=== PATIENT | female | born 1950 | race Caucasian/White ===

== ENCOUNTER → 2016-12-31 | Outpatient (CLI) | payer OTHER | LOC: BMCIMAGING 14:35 | PROVIDERS: ATTEND Physician Assistant | DX: Z47.89 Encounter for other orthopedic aftercare (principal); Z98.1 Arthrodesis status; M51.06 Intervertebral disc disorders with myelopathy, lumbar region ==

== ENCOUNTER → 2017-02-03 | Outpatient (CLI) | payer OTHER | LOC: BHFA 16:15 | PROVIDERS: ATTEND Internal Medicine Cardiovascular Disease | DX: I48.91 Unspecified atrial fibrillation (principal); I50.9 Heart failure, unspecified ==

== ENCOUNTER 2017-02-06 00:31 | Observation (INO) | payer OTHER ==
--- NOTE | 2017-02-06 00:47 | CPEKG ---
Heart Rate: 63 RR Interval: 952 P-R Interval: 152 QRSD Interval: 122 QT Interval: 500 QTC Interval: 512 P [place]: 0 QRS [place]: -12 T Wave [place]: 20 EKG Severity - ABNORMAL ECG - EKG Impression: SINUS RHYTHM EKG Impression: NONSPECIFIC INTRAVENTRICULAR CONDUCTION DELAY EKG Impression: UNCHANGED FROM PREVIOUS Electronically Signed By: Lino Vallejo 06-Feb-2017 01:00:30
[2017-02-06] MEDS ORDERED: NS 1,000 ML IV ONE (00:56)
[2017-02-06] MEDS ORDERED: ONDANSETRON 4 MG/2 ML VIAL IVP ONE (00:56)
[2017-02-06] MEDS ORDERED: HYOSCYAMINE SULFATE 0.125 MG TAB PO ONE (00:59)
[2017-02-06] MEDS ORDERED: LIDOCAINE 2% VISCOUS 15 ML UDCUP PO ONE (00:59)
[2017-02-06] MEDS ORDERED: MAG HYDROX/AL HYDROX/SIMETH 30 ML UDCUP PO ONE (00:59)
[2017-02-06] MEDS ORDERED: IOPAMIDOL (ISOVUE 370) 100 ML BTL IV ONE (01:02)
--- NOTE | 2017-02-06 01:06 | EDPHY ---
H & P Stated Complaint: left face tingling and "acid reflux" beginning tonight Time Seen by Provider: 02/06/17 00:44 HPI/ROS: CHIEF COMPLAINT: Left facial tingling HISTORY OF PRESENT ILLNESS: The patient is a 67-year-old female who comes to the emergency department complaining of left-sided facial tingling. This began about 11:45 p.m. just over an hour ago. She has not had any other with yes or numbness or speech difficulties. 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 She was taken to [facility] had had thrombectomy. She is currently on Pradaxa for history of atrial fibrillation. She also has history of cervical and lumbar spinal fusions and congestive heart failure. She denies having any fever shortness of breath. She denies any trauma. She states that her symptoms began around 11: 30 with a significant headache and then bilateral facial tingling and then left- sided facial tingling. The headache is now gone. REVIEW OF SYSTEMS: Constitutional: denies: chills, fever, recent illness, recent injury EENTM: denies: blurred vision, double vision, nose congestion Respiratory: denies: cough, shortness of breath Cardiac: denies: chest pain, irregular heart rate, lightheadedness, palpitations Gastrointestinal/Abdominal: denies: abdominal pain, diarrhea, nausea, vomiting, blood streaked stools Genitourinary: denies: dysuria, frequency, hematuria, pain Musculoskeletal: denies: joint pain, muscle pain Skin: denies: lesions, rash, jaundice, bruising Neurological: See HPI Hematologic/Lymphatic: denies: blood clots, easy bleeding, easy bruising Immunologic/allergic: denies: HIV/AIDS, transplant EXAM: GENERAL: Well-appearing, well-nourished and in no acute distress. HEAD: Atraumatic, normocephalic. EYES: Pupils equal round and reactive to light, extraocular movements intact, sclera anicteric, conjunctiva are normal. ENT: TMs normal, nares patent, oropharynx clear without exudates. Moist mucous membranes. NECK: Normal range of motion, supple without lymphadenopathy or JVD. LUNGS: Breath sounds clear to auscultation bilaterally and equal. No wheezes rales or rhonchi. HEART: Regular rate and rhythm without murmurs, rubs or gallops. ABDOMEN: Soft, nontender, normoactive bowel sounds. No guarding, no rebound. No masses appreciated. BACK: No CVA tenderness, no spinal tenderness, step-offs or deformities EXTREMITIES: Normal range of motion, no pitting or edema. No clubbing or cyanosis. NEUROLOGICAL: Cranial nerves II through XII grossly intact. Normal speech, normal gait. 5/5 strength, normal movement in all extremities, normal sensation , normal reflexes, normal gait. She denies changes in sensation. NIH stroke score 0. PSYCH: Normal mood, normal affect. SKIN: Warm, dry, normal turgor, no visible rashes or lesions. Source: Patient Exam Limitations: No limitations - Personal History Current Tetanus/Diphtheria Vaccine: Yes Current Tetanus Diphtheria and Acellular Pertussis (TDAP): Yes Tetanus Vaccine Date: <10 years - Medical/Surgical History Hx Asthma: No Hx Chronic Respiratory Disease: No Hx Diabetes: Yes Hx Cardiac Disease: Yes Hx Renal Disease: No Hx Cirrhosis: No Hx Alcoholism: No Hx HIV/AIDS: No Hx Splenectomy or Spleen Trauma: No Other PMH: lumbar fusion, cervical fusion, DM Type 2, HTN, Afib, SBO, Spinal stenosis, Lumbar lamenectomy, cholesctectomy, IBS vs Fructose malabsorpsion, TIA , cerebellar lacunar infarct - Family History Significant Family History: No pertinent family hx - Social History Smoking Status: Former smoker Alcohol Use: Sober Drug Use: None Constitutional: Initial Vital Signs Temperature (C) 36.4 C 02/06/17 00:50 Heart Rate 72 02/06/17 00:50 Respiratory Rate 16 02/06/17 00:50 Blood Pressure 189/83 H 02/06/17 00:50 O2 Sat (%) 97 02/06/17 00:50 O2 Delivery Mode Room Air O2 (L/minute) 2 Allergies/Adverse Reactions: fructose Allergy (Severe, Verified 12/15/14 09:41) Home Medications: Medication Instructions Recorded Magnesium Oxide [Magnesium Oxide 400 mg PO HS 08/17/14 400 mg (*)] Omeprazole [Prilosec 20 mg] 20 mg PO DAILY 08/17/14 Zolpidem Tartrate [Ambien 5MG (*)] 5 - 10 mg PO HS 08/17/14 Amiodarone HCl [Pacerone (*)] 100 mg PO BID 12/15/14 Amitriptyline HCl [Elavil 10 mg 20 mg PO HS 12/15/14 (*)] Dabigatran Etexilate Mesyl 150 mg PO BID 12/15/14 [Pradaxa 150 MG (*)] Diltiazem Xr [Dilacor Xr 180 MG 180 mg PO HS 12/15/14 (RX)] Metformin HCl [Metformin 1000 mg] 1,000 mg PO BID 12/15/14 clonazePAM [Klonopin (*)] 0.5 mg PO DAILY PRN 12/15/14 Metoprolol Succinate Xr [Toprol Xl 25 mg PO DAILY #30 tab.sr 12/16/14 25 mg (*)] Atorvastatin Calcium [Lipitor 40 40 mg PO DAILY 07/28/16 mg (*)] Docusate Sodium [Colace 100 MG (*)] 100 mg PO BID PRN 07/28/16 Gabapentin [Neurontin 300 MG (*)] 900 mg PO BID 07/28/16 Levothyroxine [Synthroid 75 mcg 75 mcg PO DAILY06 07/28/16 (*)] Metoprolol Succinate Xr [Toprol Xl 50 mg PO DAILY@21 07/28/16 50 mg (*)] Ranitidine HCl 150 mg PO DAILY PRN 07/28/16 glipiZIDE [Glucotrol 5 mg] 5 mg PO DAILY 07/28/16 oxyCODONE IR [Oxycodone Ir (*)] 5 mg PO Q4-6PRN PRN 07/28/16 Insulin Glargine [Lantus 100 12 units SC HS 08/27/16 UNITS/ML (*)] Insulin Lispro [humALOG LISPRO 100 5 unit SC DAILY@18 PRN 08/27/16 units/ml (*)] Acetaminophen [Tylenol ES 500 mg 1,000 mg PO TID #0 tab 09/07/16 (*)] Methocarbamol [Robaxin 750 mg (*)] 750 mg PO QID PRN #0 tab 09/07/16 Cephalexin [Keflex] 500 mg PO QID 10 Days 09/23/16 Sulfamethox/Tmp 800/160 mg 1 tab PO BID@1000,2200 10 Days 09/23/16 [Bactrim Ds] Medical Decision Making - Diagnostics EKG Interpretation: An EKG obtained and was read and documented in trace view. Please see trace view for full reading and report. Sinus rhythm, interventricular conduction delay unchanged from previous. Imaging: Results: CT scan of the head was obtained. The results of the study are negative. The study was read by Dr. Darnell Barga. I viewed the images myself on the PACS system. Results: CT scan of the head and neck angiogram was obtained. The results of the study are negative. The study was read by Dr. Darnell Braga. I viewed the images myself on the PACS system. ED Course/Re-evaluation: 2:20 a.m. we discussed the patient's imaging results. She is reassured. She continues to have tingling in left side of her face. I do not have an explanation for this. I recommended admission for further workup and possibly MRI in the morning. The patient agrees. No Visible rashes. 2:30 a.m. I discussed the case with Dr. Padron who will admit to the [facility]. Differential Diagnosis: Partial list of the Differential diagnosis considered include but were not limited to; TIA, CVA, hemorrhage, atypical migraine, Newman's palsy and although unlikely based on the history and physical exam, I also considered meningitis, trauma, neuropathy, dissection. - Data Points Laboratory Results: Laboratory Results 02/06/17 00:56 02/06/17 00:56 02/06/17 02/06/17 02/06/17 00:56 00:56 00:56 WBC RBC Hgb POC Hgb 11.2 gm/dL L gm/dL (12.3-15.9) Hct POC Hct 33 % L % (35.5-47.5) MCV MCH MCHC RDW Plt Count MPV Neut % (Auto) Lymph % (Auto) [place] % (Auto) Eos % (Auto) Baso % (Auto) Nucleat RBC Rel Count Absolute Neuts (auto) Absolute Lymphs (auto) Absolute Monos (auto) Absolute Eos (auto) Absolute Basos (auto) Absolute Nucleated RBC Immature Gran % Immature Gran # PT 14.0 SEC SEC (12.0-15.0) INR 1.09 (0.83-1.16) APTT 35.2 SEC SEC (23.0-38.0) POC Sodium 138 mEq/L mEq/L (134-144) Sodium 138 mEq/L mEq/L (134-144) POC Potassium 3.7 mEq/L mEq/L (3.3-5.0) Potassium 4.1 mEq/L mEq/L (3.5-5.2) POC Chloride 99 mEq/L mEq/L (96-108) Chloride 101 mEq/L mEq/L (97-110) Carbon Dioxide 25 mEq/l mEq/l (22-31) Anion Gap 12 mEq/L mEq/L (8-16) POC BUN 10 mg/dL mg/dL (7-23) BUN 12 mg/dL mg/dL (7-23) Creatinine 0.7 mg/dL mg/dL (0.6-1.0) POC Creatinine 0.6 mg/dL mg/dL (0.6-1.2) Estimated GFR > 60 Glucose 148 mg/dL H mg/dL (70-100) POC Glucose 151 mg/dL H mg/dL (70-100) Calcium 9.7 mg/dL mg/dL (8.5-10.4) Troponin I < 0.012 ng/mL ng/mL (0-0.034) 02/06/17 00:56 WBC 9.45 10^3/uL 10^3/uL (3.80-9.50) RBC 4.26 10^6/uL 10^6/uL (4.18-5.33) Hgb 9.9 g/dL L g/dL (12.6-16.3) POC Hgb Hct 32.7 % L % (38.0-47.0) POC Hct MCV 76.8 fL L fL (81.5-99.8) MCH 23.2 pg L pg (27.9-34.1) MCHC 30.3 g/dL L g/dL (32.4-36.7) RDW 17.4 % H % (11.5-15.2) Plt Count 429 10^3/uL H 10^3/uL (150-400) MPV 10.5 fL fL (8.7-11.7) Neut % (Auto) 45.0 % % (39.3-74.2) Lymph % (Auto) 38.3 % % (15.0-45.0) [place] % (Auto) 13.0 % % (4.5-13.0) Eos % (Auto) 2.2 % % (0.6-7.6) Baso % (Auto) 1.1 % % (0.3-1.7) Nucleat RBC Rel Count 0.0 % % (0.0-0.2) Absolute Neuts (auto) 4.25 10^3/uL 10^3/uL (1.70-6.50) Absolute Lymphs (auto) 3.62 10^3/uL H 10^3/uL (1.00-3.00) Absolute Monos (auto) 1.23 10^3/uL H 10^3/uL (0.30-0.80) Absolute Eos (auto) 0.21 10^3/uL 10^3/uL (0.03-0.40) Absolute Basos (auto) 0.10 10^3/uL 10^3/uL (0.02-0.10) Absolute Nucleated RBC 0.00 10^3/uL 10^3/uL (0-0.01) Immature Gran % 0.4 % % (0.0-1.1) Immature Gran # 0.04 10^3/uL 10^3/uL (0.00-0.10) PT INR APTT POC Sodium Sodium POC Potassium Potassium POC Chloride Chloride Carbon Dioxide Anion Gap POC BUN BUN Creatinine POC Creatinine Estimated GFR Glucose POC Glucose Calcium Troponin I Medications Given: Discontinued Medications Al Hydroxide/Mg Hydroxide (Maalox Susp) 30 ml PO ONCE ONE Stop: 02/06/17 01:00 Last Admin: 02/06/17 01:44 Dose: 30 ml Hyoscyamine Sulfate (Levsin, Hyomax-Sl) 0.25 mg PO ONCE ONE Stop: 02/06/17 01:00 Last Admin: 02/06/17 01:43 Dose: 0.25 mg Sodium Chloride (Ns) 1,000 mls @ 500 mls/hr IV EDNOW ONE Stop: 02/06/17 02:55 Last Admin: 02/06/17 01:43 Dose: 1,000 mls Lidocaine (Lidocaine 2% Viscous) 15 ml PO ONCE ONE Stop: 02/06/17 01:00 Last Admin: 02/06/17 01:43 Dose: 15 ml Ondansetron HCl (Zofran) 4 mg IVP EDNOW ONE Stop: 02/06/17 00:57 Last Admin: 02/06/17 01:44 Dose: Not Given Point of Care Test Results: 02/06/17 00:56 POC Sodium 138 POC Potassium 3.7 POC Chloride 99 POC BUN 10 POC Creatinine 0.6 POC Glucose 151 H Departure - Departure Disposition: [facility] Inpatient Acute Clinical Impression: Paresthesia Condition: Fair
[2017-02-06 01:17] LABS: % IMMATURE GRANULYOCYTES 0.4 % (0.0-1.1); ABSOLUTE IMMATURE GRANULOCYTES 0.04 10^3/uL (0.00-0.10); ADD DIFF? NO; ADD MORPH? NO; ADD SCAN? NO; ATYPICAL LYMPHOCYTE FLAG 0 (0-99); FRAGMENT RBC FLAG 20 (0-99); HEMATOCRIT 32.7 % (38.0-47.0); HEMOGLOBIN 9.9 g/dL (12.6-16.3); LEFT SHIFT FLG 0 (0-99); LIPEMIA HEMOLYSIS FLAG 80 (0-99); MEAN CELL HEMOGLOBIN 23.2 pg (27.9-34.1); MEAN CELL HEMOGLOBIN CONCENTR. 30.3 g/dL (32.4-36.7); MEAN CELL VOLUME 76.8 fL (81.5-99.8); MEAN PLATELET VOLUME 10.5 fL (8.7-11.7); PLATELET CLUMPS FLAG 0 (0-99); PLATELET COUNT 429 10^3/uL (150-400); RED BLOOD CELL COUNT 4.26 10^6/uL (4.18-5.33); RED CELL DISTRIBUTION WIDTH 17.4 % (11.5-15.2)
[2017-02-06 01:21] LABS: INR 1.09 (0.83-1.16)
[2017-02-06 01:22] LABS: APTT 35.2 SEC (23.0-38.0)
[2017-02-06 01:40] LABS: ANION GAP 12 mEq/L (8-16); CALCIUM 9.7 mg/dL (8.5-10.4); CARBON DIOXIDE 25 mEq/l (22-31); CHLORIDE 101 mEq/L (97-110); CREATININE 0.7 mg/dL (0.6-1.0); GLOMERULAR FILTRATION RATE > 60; GLUCOSE 148 mg/dL (70-100); POTASSIUM 4.1 mEq/L (3.5-5.2); SODIUM 138 mEq/L (134-144)
[2017-02-06 01:53] LABS: TROPONIN I < 0.012 ng/mL (0-0.034)
[2017-02-06 03:28] VITALS: RESP 19
[2017-02-06] MEDS ORDERED: OXYCODONE/APAP 5/325 TAB PO PRN (04:08)
--- NOTE | 2017-02-06 06:06 | PDGENHP ---
History and Physical - Chief Complaint headache, facial tingling - History of Present Illness Patient is a 67-year-old female with a history of atrial fibrillation, dm 2, diastolic CHF, hypertension and previous CVA with residual mild expressive aphasia who presents to the ED with complaint of severe headache and facial tingling. Patient states she did not previously get headaches and was never diagnosed with migraine headaches, but over the past 2 months has noticed increasing frequency of frontal headache. This evening patient reports feeling in her usual state of health when at around 11:30 p.m. she developed the sudden onset severe headache. She describes the headache as 8/10 in intensity present diffusely across her head, associated with mild blurriness in her vision. Shortly after the onset of the headache she also developed left facial tingling. She did not note any associated dysarthria, drooling, or any other focal weakness/tingling in her body. Given these symptoms and her history, she decided to come to the ED for further evaluation. Of note, patient reports having a routine outpatient TTE on 02/03, was told results were not significantly changed from priors. She denies any chest pain, palpitations, shortness of breath or cough presently. She also denies n/v/d. On arrival to the ED patient was afebrile, but moderately hypertensive. CT head showed chronic small vessel disease but no acute hemorrhage, infarct or edema. Patient's EKG was normal sinus rhythm without obvious ischemic changes. Labs revealed negative troponin, normal CBC and normal BMP including glucose. CT angio of her head and neck were also unremarkable for any obvious vessel infarct or stenosis. Patient was then admitted to the hospitalist service for further management. History Information - Allergies/Home Medication List Allergies/Adverse Reactions: fructose Allergy (Severe, Verified 12/15/14 09:41) Home Medications: Magnesium Oxide [Magnesium Oxide 400 mg (*)] 400 mg PO HS 08/17/14 [Last Taken 08/05/16] Omeprazole [Prilosec 20 mg] 20 mg PO DAILY 08/17/14 [Last Taken 09/01/16 21:00] Zolpidem Tartrate [Ambien 5MG (*)] 5 - 10 mg PO HS 08/17/14 [Last Taken 05:00] Amiodarone HCl [Pacerone (*)] 100 mg PO BID 12/15/14 [Last Taken 09/02/16 05:00] Amitriptyline HCl [Elavil 10 mg (*)] 20 mg PO HS 12/15/14 [Last Taken 09/01/16 20:30] Dabigatran Etexilate Mesyl [Pradaxa 150 MG (*)] 150 mg PO BID 12/15/14 [Last Taken 08/29/16] Diltiazem Xr [Dilacor Xr 180 MG (RX)] 180 mg PO HS 12/15/14 [Last Taken 09/01/16 ] Metformin HCl [Metformin 1000 mg] 1,000 mg PO BID 12/15/14 [Last Taken 09/01/16 20:00] clonazePAM [Klonopin (*)] 0.5 mg PO DAILY PRN 12/15/14 [Last Taken 09/02/16 05: 00] Atorvastatin Calcium [Lipitor 40 mg (*)] 40 mg PO DAILY 07/28/16 [Last Taken ] Docusate Sodium [Colace 100 MG (*)] 100 mg PO BID PRN 07/28/16 [Last Taken 09/01] Gabapentin [Neurontin 300 MG (*)] 900 mg PO BID 07/28/16 [Last Taken 09/02/16 05 :00 300] Levothyroxine [Synthroid 75 mcg (*)] 75 mcg PO DAILY06 07/28/16 [Last Taken 05:00] Metoprolol Succinate Xr [Toprol Xl 50 mg (*)] 50 mg PO DAILY@21 07/28/16 [Last Taken 09/01/16 20:00] Ranitidine HCl 150 mg PO DAILY PRN 07/28/16 [Last Taken 08/12/16] glipiZIDE [Glucotrol 5 mg] 5 mg PO DAILY 07/28/16 [Last Taken 09/01/16] oxyCODONE IR [Oxycodone Ir (*)] 5 mg PO Q4-6PRN PRN 07/28/16 [Last Taken ] Insulin Glargine [Lantus 100 UNITS/ML (*)] 12 units SC HS 08/27/16 [Last Taken Unknown] Insulin Lispro [humALOG LISPRO 100 units/ml (*)] 5 unit SC DAILY@18 PRN [Last Taken Unknown] I have personally reviewed and updated: family history, medical history, social history, surgical history - Past Medical History Additional medical history: atrial fibrillation on pradaxa. DM 2. diastolic CHF. hypertension. previous CVA with residual mild expressive aphasia. HLD - Surgical History Additional surgical history: Lumbar laminectomy. cervical kyphoplasty. small bowel surgery - Family History Positive for: non-pertinent - Social History Smoking Status: Former smoker (quit > 30 yrs ago) Alcohol Use: None Drug Use: None Additional social history: Patient lives alone, usually walks independently, exercises with PT regularly. Review of Systems ROS: 10pt was reviewed & negative except for what was stated in HPI & below Physical Exam Temp Pulse Resp BP Pulse Ox 36.5 C 57 L 19 151/75 H 99 02/06/17 03:06 02/06/17 03:06 02/06/17 03:06 02/06/17 03:06 02/06/17 03:06 Constitutional: no apparent distress, appears nourished, not in pain, obese Eyes: PERRL, anicteric sclera, EOMI Ears, Nose, Mouth, Throat: moist mucous membranes, hearing normal, ears appear normal, no oral mucosal ulcers Cardiovascular: regular rate and rhythym, no murmur, rub, or gallop, pulses symmetric bilaterally, No JVD, No edema Peripheral Pulses: 2+: dorsalis-pedis (R), dorsalis-pedis (L) Respiratory: no respiratory distress, no rales or rhonchi, clear to auscultation Gastrointestinal: normoactive bowel sounds, soft, non-tender abdomen, no palpable masses, No guarding, No rebound, No distension Genitourinary: no bladder fullness, no bladder tenderness Skin: warm, normal color, no rashes or abrasions, no fluctuance, No mottled Musculoskeletal: full muscle strength, no muscle tenderness, normal joint ROM, no joint effusions Neurologic: AAOx3, sensation intact bilaterally, CN II-XII Intact, No weakness, No numbness, No pronator drift, No facial droop Psychiatric: interacting appropriately, not anxious, not encephalopathic, thought process linear Lab Data & Imaging Review 02/06/17 00:56 02/06/17 00:56 WBC 9.45 10^3/uL (3.80-9.50) 02/06/17 00:56 RBC 4.26 10^6/uL (4.18-5.33) 02/06/17 00:56 Hgb 9.9 g/dL (12.6-16.3) L 02/06/17 00:56 POC Hgb 11.2 gm/dL (12.3-15.9) L 02/06/17 00:56 Hct 32.7 % (38.0-47.0) L 02/06/17 00:56 POC Hct 33 % (35.5-47.5) L 02/06/17 00:56 MCV 76.8 fL (81.5-99.8) L 02/06/17 00:56 MCH 23.2 pg (27.9-34.1) L 02/06/17 00:56 MCHC 30.3 g/dL (32.4-36.7) L 02/06/17 00:56 RDW 17.4 % (11.5-15.2) H 02/06/17 00:56 Plt Count 429 10^3/uL (150-400) H 02/06/17 00:56 MPV 10.5 fL (8.7-11.7) 02/06/17 00:56 Neut % (Auto) 45.0 % (39.3-74.2) 02/06/17 00:56 Lymph % (Auto) 38.3 % (15.0-45.0) 02/06/17 00:56 [place] % (Auto) 13.0 % (4.5-13.0) 02/06/17 00:56 Eos % (Auto) 2.2 % (0.6-7.6) 02/06/17 00:56 Baso % (Auto) 1.1 % (0.3-1.7) 02/06/17 00:56 Nucleat RBC Rel Count 0.0 % (0.0-0.2) 02/06/17 00:56 Absolute Neuts (auto) 4.25 10^3/uL (1.70-6.50) 02/06/17 00:56 Absolute Lymphs (auto) 3.62 10^3/uL (1.00-3.00) H 02/06/17 00:56 Absolute Monos (auto) 1.23 10^3/uL (0.30-0.80) H 02/06/17 00:56 Absolute Eos (auto) 0.21 10^3/uL (0.03-0.40) 02/06/17 00:56 Absolute Basos (auto) 0.10 10^3/uL (0.02-0.10) 02/06/17 00:56 Absolute Nucleated RBC 0.00 10^3/uL (0-0.01) 02/06/17 00:56 Immature Gran % 0.4 % (0.0-1.1) 02/06/17 00:56 Immature Gran # 0.04 10^3/uL (0.00-0.10) 02/06/17 00:56 PT 14.0 SEC (12.0-15.0) 02/06/17 00:56 INR 1.09 (0.83-1.16) 02/06/17 00:56 APTT 35.2 SEC (23.0-38.0) 02/06/17 00:56 POC Sodium 138 mEq/L (134-144) 02/06/17 00:56 Sodium 138 mEq/L (134-144) 02/06/17 00:56 POC Potassium 3.7 mEq/L (3.3-5.0) 02/06/17 00:56 Potassium 4.1 mEq/L (3.5-5.2) 02/06/17 00:56 POC Chloride 99 mEq/L (96-108) 02/06/17 00:56 Chloride 101 mEq/L (97-110) 02/06/17 00:56 Carbon Dioxide 25 mEq/l (22-31) 02/06/17 00:56 Anion Gap 12 mEq/L (8-16) 02/06/17 00:56 POC BUN 10 mg/dL (7-23) 02/06/17 00:56 BUN 12 mg/dL (7-23) 02/06/17 00:56 Creatinine 0.7 mg/dL (0.6-1.0) 02/06/17 00:56 POC Creatinine 0.6 mg/dL (0.6-1.2) 02/06/17 00:56 Estimated GFR > 60 02/06/17 00:56 Glucose 148 mg/dL (70-100) H 02/06/17 00:56 POC Glucose 151 mg/dL (70-100) H 02/06/17 00:56 Calcium 9.7 mg/dL (8.5-10.4) 02/06/17 00:56 Troponin I < 0.012 ng/mL (0-0.034) 02/06/17 00:56 Visualized and Interpreted imaging results: Yes Interpretation: CT head: no acute intranial changes; chronic small vessel disease and previous lacunar infarct. CT angio head/neck: no acute infarct or stenosis Visualized and Interpreted EKG results: Yes EKG Interpretation: Positive for: normal sinsus rhythm Assessment & Plan Assessment: Patient is a 67-year-old female with history of previous CVA, hypertension hyperlipidemia, dm 2, diastolic CHF and atrial fibrillation on systemic anticoagulation who presents to the ED with complaint of headache and facial paresthesias concerning for TIA versus complex migraine. Plan: # facial paresthesias Patient's description of her symptoms and physical exam appear consistent with TIA vs complex migraine. Symptom onset at 11:30pm and have improved since admission. Initial CT head and CT angio head/neck are without acute pathology. Electrolytes, including glucose, are within normal limits. Patient had recent lipid panel and TTE in the outpatient setting, will obtain TTE results to complete the TIA w/u. EKG and troponin are also unremarkable. Will check MRI brain. # elevated BP, chronic hypertension BP moderately elevated on presentation, has improved without intervention. Will allow for permissive hypertension in setting of possible tia vs cva and restart home meds when appropriate. # diastolic CHF Patient appears euvolemic on presentation today. Reports she was recently initiated on lasix and also spironolactone therapy. Will continue this regimen once dosing confirmed. # DM2 Patient on basal/bolus insulin at home. Will confirm and continue home regimen. Recent A1C 7%. # atrial fibrillation Patient in sinus rhythm on presenting EKG, rate wnl. Will continue home pradaxa as well as rate controlling meds, once confirmed. # dispo: admit to observation for TIA w/u # gen: cardiac diet DVT ppx: on pradaxa Full code
[2017-02-06] MEDS ORDERED: D50W 25 GM/50 ML SYR IVP PRN (07:14)
[2017-02-06] MEDS ORDERED: INSULIN LISPRO 100 UNIT/ML SC SCH ×3 (08:00→18:00)
[2017-02-06 09:48] LABS: COLOR PALE YELLOW; LEUKOCYTE ESTERASE,URINE NEGATIVE (NEGATIVE); NITRITE,URINE NEGATIVE (NEGATIVE)
[2017-02-06 10:00] VITALS: BP 148/73; PULSE 53; TEMP 98.4; O2SAT 92
[2017-02-06] MEDS ORDERED: ACETAMINOPHEN 500 MG TAB PO PRN (12:03)
[2017-02-06] MEDS ORDERED: NON-FORMULARY NEW DRUG (Ranitidine Hcl [Ranitidine Hcl] 150 MG) PO PRN (12:03)
[2017-02-06] MEDS ORDERED: clonazePAM 0.5 MG TAB PO PRN (12:03)
[2017-02-06] MEDS ORDERED: oxyCODONE IR 5 MG TAB PO PRN (12:03)
--- NOTE | 2017-02-06 12:07 | HOSPPROG ---
Hospitalist Progress Note Assessment/Plan: 67 yo F w CP neg stress home today see dc summary Subjective: neg stress Objective: Vital Signs Temp Pulse Resp BP Pulse Ox 36.9 C 53 L 19 148/73 H 92 02/06/17 08:00 02/06/17 08:00 02/06/17 08:00 02/06/17 08:00 02/06/17 08:00 02/05/17 02/06/17 02/07/17 05:59 05:59 05:59 Intake Total 500 Balance 500 PT 14.0 SEC (12.0-15.0) 02/06/17 00:56 INR 1.09 (0.83-1.16) 02/06/17 00:56 - Physical Exam Constitutional: no apparent distress, appears nourished Eyes: PERRL, anicteric sclera Ears, Nose, Mouth, Throat: hearing normal, ears appear normal Cardiovascular: regular rate and rhythym, no murmur, rub, or gallop Respiratory: no respiratory distress, no rales or rhonchi, clear to auscultation Gastrointestinal: normoactive bowel sounds, soft, non-tender abdomen Genitourinary: no bladder fullness, No landry in urethra Skin: warm, normal color Musculoskeletal: full muscle strength, no muscle tenderness Neurologic: AAOx3 ICD10 Worksheet Patient Problems: Problems Problem Status Onset Paresthesia Acute Abdominal pain Acute Arthrodesis status Acute Atrial fibrillation with rapid ventricular response Acute Facial numbness Acute Inadvertent durotomy Acute Lumbar radiculitis Acute Lumbar stenosis Acute
[2017-02-06] MEDS ORDERED: NON-FORMULARY NEW DRUG (Omeprazole [Prilosec 20 Mg] 20 MG) PO SCH (12:15)
[2017-02-06] MEDS ORDERED: FAMOTIDINE 20 MG TAB PO PRN (12:25)
[2017-02-06] MEDS ORDERED: SPIRONOLACTONE 25 MG TAB PO SCH (12:30)
[2017-02-06] MEDS ORDERED: AMIODARONE HCL 200 MG TAB PO SCH (12:30)
[2017-02-06] MEDS ORDERED: FUROSEMIDE 40 MG TAB PO SCH (12:30)
[2017-02-06] MEDS ORDERED: GABAPENTIN 300 MG CAP PO SCH ×2 (12:30→21:00)
[2017-02-06] MEDS ORDERED: DABIGATRAN ETEXILATE MESYL 150 MG CAP PO SCH (12:30)
[2017-02-06] MEDS ORDERED: PANTOPRAZOLE SODIUM 40 MG TAB PO SCH (12:30)
[2017-02-06] MEDS ORDERED: METOPROLOL SUCCINATE XR 25 MG TAB PO SCH (12:30)
[2017-02-06] MEDS ORDERED: ATORVASTATIN CALCIUM 40 MG TAB PO SCH (12:30)
--- NOTE | 2017-02-06 16:50 | HOSPPROG ---
Hospitalist Progress Note Assessment/Plan: 67 yo tia vs migraine neuro to see in AM no stroke on M add asa PT/OT Objective: Vital Signs Temp Pulse Resp BP Pulse Ox 36.9 C 53 L 19 148/73 H 92 02/06/17 08:00 02/06/17 13:48 02/06/17 08:00 02/06/17 13:48 02/06/17 08:00 02/05/17 02/06/17 02/07/17 05:59 05:59 05:59 Intake Total 500 Balance 500 PT 14.0 SEC (12.0-15.0) 02/06/17 00:56 INR 1.09 (0.83-1.16) 02/06/17 00:56 ICD10 Worksheet Patient Problems: Problems Problem Status Onset Paresthesia Acute Abdominal pain Acute Arthrodesis status Acute Atrial fibrillation with rapid ventricular response Acute Facial numbness Acute Inadvertent durotomy Acute Lumbar radiculitis Acute Lumbar stenosis Acute
[2017-02-06] MEDS ORDERED: NON-FORMULARY NEW DRUG (Metformin Hcl [Metformin 1000 Mg] 1,000 MG) PO SCH (21:00)
[2017-02-06] MEDS ORDERED: METOPROLOL SUCCINATE XR 50 MG TAB PO SCH (21:00)
[2017-02-06] MEDS ORDERED: INSULIN GLARGINE 100 UNITS/ML SYRINGE SC SCH (21:00)
[2017-02-06] MEDS ORDERED: metFORMIN HCL 500 MG TAB PO SCH (21:00)
[2017-02-06] MEDS ORDERED: AMITRIPTYLINE HCL 10 MG TAB PO SCH (21:00)
[2017-02-06] MEDS ORDERED: ZOLPIDEM TARTRATE 5 MG TAB PO SCH (21:00)
[2017-02-06] MEDS ORDERED: DILTIAZEM 180 MG PO SCH (21:00)
--- NOTE | 2017-02-06 21:12 | GCON ---
[f rep st] CONSULTATION NEUROLOGY CONSULTATION DATE OF CONSULTATION: 02/06/2017 REFERRING PHYSICIAN: Angelo Conklin MD CHIEF COMPLAINT: Paresthesias. BILLING INFORMATION: 50 total minutes on floor time today; over 50% in direct counseling with the patient and coordination of care. HISTORY OF PRESENT ILLNESS: The patient is a very pleasant 67-year-old lady with known atrial fibrillation, on anticoagulation with Pradaxa. She has a fairly well-documented and complex neurologic history in our electronic health record. Most recently, in January of 2016, she had missed at least 2 doses of Pradaxa and came in with acute expressive aphasia under a stroke alert. Noncontrasted head CT showed early changes of left hemisphere infarct, and CT angiography of the head showed an acute intraluminal thrombus in distal MCA branches. She was helicoptered to [facility] and had a percutaneous clot retrieval and did very well with interventional therapy. She states she had a "99%" recovery from that procedure with just a little bit of word substitution symptoms occasionally. The other important part of her neurologic history dates back to 2010. She was at [facility] having a chair massage because she has cervical spine problems with a fusion in the past. She was having neck cracks, per her words, at that time. She then suddenly developed some left facial tingling identical to what she presented with this admission. She developed some headache and some what she describes as some scintillating scotoma at that time. She eventually came to the emergency department and was found to have an incidental small cerebellar infarct on diffusion-weighted images. Dr. Sebastian had seen her at that time and felt that the infarct was not related to her left facial tingling. Indeed, I was able to see the 2010 diffusion-weighted images this evening, and the diffusion-weighted lesion should not cause any left facial sensory symptoms. The patient came to the emergency department this admission because at 11:45 p.m. last night she developed a significant headache. However, she states she has been actually having headache for 10 days related to an upper respiratory tract viral infection that has been building for the last 10 days related to the viral URI. Last night, she had yet another headache as she had been having for the last 10 days in a frontal vice-like manner. She then took a Klonopin and lay down and then got up 15 minutes later and the left V2 distribution of her face began tingling, very familiar to the symptoms she had in 2010. The tingling did seem to approach or start crossing midline across her lips in a perioral distribution. The headache persisted and she came to the emergency department. She had a full stroke evaluation with CT of the head and neck. We reviewed that data. The CT angiography of the head and neck showed no significant cervical stenosis and her intracranial circulation was unremarkable. There was no clot or thrombus. She had a followup brain MRI at 4 a.m. this morning which showed no diffusion-weighted abnormalities. The radiologist did note that since her last MRI in 2014, there have been some new lacunar infarcts. She has been on anticoagulation continuously for the most part since 2014 until now. She does continue to feel some on and off paresthesias in her left face and around her lips, depending on what she is doing or if she is paying attention. Her headache is very mild and resolving now. There was no nausea or phonophobia or photophobia. REVIEW OF SYSTEMS: A 10-point review of systems only pertinent to HPI. PAST MEDICAL HISTORY: Atrial fibrillation, on Pradaxa. Diabetes, diastolic CHF , hypertension, previous stroke, status post percutaneous thrombectomy. SOCIAL HISTORY: She is a former smoker, quit over 30 years ago. Originally from [place]. She lives alone. FAMILY HISTORY: There is no inheritable neurologic disease. HOME MEDICATIONS: Please see the full EHR list. She is on Pradaxa. She is not on any antiplatelets. ALLERGIES: Fructose. PHYSICAL EXAMINATION: VITAL SIGNS: Blood pressure 148/73, heart rate 53, afebrile; 36.9. GENERAL: Patient is in no acute distress. She is very pleasant. NEUROLOGIC: Higher mental function: She is awake and alert. She is lucid. She names 5/5. She follows commands 5/5. Repeats 5/5. There was no aphasia with formal testing, however, to conversation. She did have some word substitutions occasionally and phonemic paraphasic errors on occasion as well. Cranial nerve exam was normal, 2 through 7, 11 and 12. When I was doing light touch testing on her face, she denied any difference between the left and right. Motor exam was normal strength, tone, and deep tendon reflexes throughout. Sensory exam was normal to light touch in limbs. Coordination was normal in the upper and lower extremities. Her gait was normal to straight away. There was no ataxia. IMPRESSION/PLAN: 1. History of atrial for atrial fibrillation, on novel oral anticoagulant therapy. 2. History of Stroke 3. Paresthesias and headache, resolving. The patient's current symptoms are not definitively consistent with an acute neurovascular syndrome based on the clinical features and negative diffusion- weighted imaging on MRI. I am reassured she has had these symptoms in the past and they appear to have begun with this viral upper respiratory tract infection. They may be an atypical migraine or a benign facial paresthesia in the setting of viral syndrome symptoms, including headache. I counseled the patient at length. We also discussed that she has had interval lacunar infarcts since her last MRI in 2014. This is despite being on oral anticoagulation. For the time being, I have recommended we add a baby aspirin to her daily Pradaxa therapy. She is agreeable to this plan and will keep an eye out for any bleeding or bruising. She will follow up with Cardiology next week and discuss with Dr. Muniz. If he is okay with antiplatelet therapy, in addition to oral anticoagulation, she will continue indefinitely. If he has any contraindications, she can discontinue the baby aspirin. Otherwise, I have talked to Dr. Conklin, and he will discharge the patient this evening with followup with Dr. Muniz, and she can also follow up with her outpatient neurologist, Dr. Gerard, as well. Thank you for this consultation. /[id number]/MODL MTDD
[2017-02-07] MEDS ORDERED: LEVOTHYROXINE 75 MCG TAB PO SCH (06:00)
[2017-02-07] MEDS ORDERED: ASPIRIN 81 MG CHEWABLE TAB PO SCH (09:00)
[2017-02-07] MEDS ORDERED: PANTOPRAZOLE SODIUM 40 MG TAB PO SCH (09:00)
[2017-02-07] MEDS ORDERED: DILTIAZEM CD 180 MG CAP PO SCH (09:00)
--- NOTE | 2017-02-07 15:23 | GDS ---
[f rep st] DISCHARGE SUMMARY DISCHARGE DIAGNOSES: 1. History of cerebrovascular accident. 2. Facial numbness with MRI with no evidence of stroke. 3. Atrial fibrillation, on novel oral anticoagulant therapy. 4. Headache. HOSPITAL COURSE: The patient presented with focal headache and facial tingling and perhaps some num bness in the context of recent headaches, which were a new complaint for her. She had a head CT wit h no acute stroke and no hemorrhage. She had CTA showing no significant vascular lesions. She ackn owledged compliance with her novel oral anticoagulant. She had a brain MRI that showed no acute or subacute stroke, but she did have small lacunar infarcts since the prior study of November 16, 2014, i ncluding a left basal ganglia and left lateral margin of the posterior temporal lobes. The patient does not take an aspirin. This was added. She was seen by Neurology, who felt that her presenting constellation of symptoms, did not represent a neurovascular event, and this is supported by the omar snyder. She is discharged home with an aspirin and an otherwise unchanged medical regimen. /[id number]/MODL
== END 2017-02-06 20:05 | disposition home or self-care (01) ==
LOC: F1N 03:04
PROVIDERS: ADMIT Internal Medicine; ATTEND Internal Medicine
DX: R20.2 Paresthesia of skin (principal); R51 Headache; I48.91 Unspecified atrial fibrillation; Z79.01 Long term (current) use of anticoagulants; Z86.73 Personal history of transient ischemic attack (TIA), and cerebral infarction without residual deficits; E11.9 Type 2 diabetes mellitus without complications; Z98.1 Arthrodesis status; I11.0 Hypertensive heart disease with heart failure; I50.32 Chronic diastolic (congestive) heart failure; E78.5 Hyperlipidemia, unspecified
CPT/HCPCS: 70450; 70496; 70498; 70551; 93005; G0378; J1815; J2405; Q9967; 82947-QW

== ENCOUNTER → 2017-04-15 | Outpatient (CLI) | payer OTHER | LOC: BHFA 13:00 | PROVIDERS: ATTEND Internal Medicine Interventional Cardiology | DX: I48.91 Unspecified atrial fibrillation (principal); R06.02 Shortness of breath ==

== ENCOUNTER → 2017-06-22 | Outpatient (CLI) | payer OTHER | LOC: BMCIMAGING 11:16 | PROVIDERS: ATTEND Physician Assistant | DX: Z09 Encounter for follow-up examination after completed treatment for conditions other than malignant neoplasm (principal); Z98.890 Other specified postprocedural states ==

== ENCOUNTER → 2017-07-16 | Outpatient (CLI) | payer OTHER | LOC: FIMAGING 15:48 | PROVIDERS: ATTEND Internal Medicine Critical Care Medicine | DX: J40 Bronchitis, not specified as acute or chronic (principal); D71 Functional disorders of polymorphonuclear neutrophils; I25.10 Atherosclerotic heart disease of native coronary artery without angina pectoris; Z87.891 Personal history of nicotine dependence ==

== ENCOUNTER 2017-07-26 13:12 | Emergency (ER) | payer OTHER ==
--- NOTE | 2017-07-26 13:30 | EDPHY ---
H & P Stated Complaint: Back pain Time Seen by Provider: 07/26/17 13:27 HPI/ROS: HPI: This is a 67-year-old female who presents with Chief Complaint: lower back pain Location: Lumbar back Quality: Sharp pain Duration: 1-2 weeks Signs and Symptoms: No bleeding, no radiation, no numbness, no weakness, no tingling, no incontinence, no decreased range of motion Timing: Worse over the last 2 days Severity: Moderate to severe Context: Patient reports that she had lumbar fusion [address] Shannon. She saw him again in 1 month ago and x-ray showed some loosening of screws. She then had outpatient MRI of the lumbar spine at [facility] 1 week ago. She is unsure of these results. She reports that she was sitting on the toilet 2 days ago, flexed her back and felt a pulling sensation where the screws are located. Pain has continued to worsen over the last 2 days. She is ambulatory, denies incontinence, but reports considerable pain Modifying Factors: Given 100 Fentanyl on route by EMS moderate relief Comment: ROS: Constitutional: No fever, no chills, no weight loss Eyes: No blurred vision Respiratory: No shortness of breath, no cough Cardiovascular: No chest pain Gastrointestinal: No nausea, no vomiting no diarrhea Genitourinary: No dysuria Extremities: No myalgias Neurologic: No weakness, no numbness Skin: No rashes Hematologic: No bruising, no bleeding MEDICAL/SURGICAL/SOCIAL HISTORY: lumbar fusion, cervical fusion, DM Type 2, HTN, Afib, SBO, Spinal stenosis, Lumbar laminectomy, cholecystectomy, IBS vs Fructose malabsorption, TIA, cerebellar lacunar infarct Source: Patient Exam Limitations: No limitations - Personal History Tetanus Vaccine Date: <10 years - Medical/Surgical History Hx Asthma: No Hx Chronic Respiratory Disease: No Hx Diabetes: Yes Hx Cardiac Disease: Yes Hx Renal Disease: No Hx Cirrhosis: No Hx Alcoholism: No Hx HIV/AIDS: No Hx Splenectomy or Spleen Trauma: No Other PMH: lumbar fusion, cervical fusion, DM Type 2, HTN, Afib, SBO, Spinal stenosis, Lumbar lamenectomy, cholesctectomy, IBS vs Fructose malabsorpsion, TIA , cerebellar lacunar infarct - Social History Smoking Status: Former smoker (quit > 30 yrs ago) - Physical Exam Exam: CONSTITUTIONAL: Elderly female, nontoxic in appearance, talkative, awake and alert, no obvious distress HEENT: Atraumatic and normocephalic, PERRL, EOMI. Tympanic membranes clear. Oropharynx clear, no exudate and moist pink mucosa. Airway patent. No lymphadenopathy. No meningismus. Cardiovascular: Normal S1/S2, regular rate, regular rhythm, without murmur rub or gallop. PULMONARY/CHEST: Symmetrical and nontender. Clear to auscultation bilaterally Good air movement. No accessory muscle usage. ABDOMEN: Soft, nondistended, nontender, no rebound, no guarding, no peritoneal signs, no masses or organomegaly. No CVAT. EXTREMITIES: 2/2 pulses, no deformities, no clubbing, no cyanosis or edema. BACK: Able to roll [id number] in the ER stretcher without assistance; well- healed remote lumbar midline incision noted; no tenderness bilaterlly lumbar paraspinous muscles; no midline deformities/tenderness with palpation. Bilateral full range of motion of hip flexion/internal rotation/external rotation. Pain with bilateral straight leg raise. Pain worsened with extension to 30, flexion to 90, bilateral rotation 45. NEUROLOGICAL: no focal neuro deficits. GCS 15. Light touch sensation intact. SKIN: Warm and dry, no erythema. no rash. Good capillary refill. Constitutional: Initial Vital Signs Heart Rate 91 07/26/17 13:36 Blood Pressure 135/74 H 07/26/17 13:36 O2 Sat (%) 2 L 07/26/17 13:36 O2 Delivery Mode Room Air Allergies/Adverse Reactions: fructose Allergy (Severe, Verified 12/15/14 09:41) Home Medications: Medication Instructions Recorded Omeprazole [Prilosec 20 mg] 20 mg PO DAILY 08/17/14 Zolpidem Tartrate [Ambien 5MG (*)] 5 - 10 mg PO HS 08/17/14 Amitriptyline HCl [Elavil 10 mg 20 mg PO HS 12/15/14 (*)] Dabigatran Etexilate Mesyl 150 mg PO BID 12/15/14 [Pradaxa 150 MG (*)] Diltiazem Xr [Dilacor Xr 180 MG 180 mg PO HS 12/15/14 (RX)] Metformin HCl [Metformin 1000 mg] 1,000 mg PO BID 12/15/14 clonazePAM [Klonopin (*)] 0.5 mg PO DAILY PRN 12/15/14 Metoprolol Succinate Xr [Toprol Xl 25 mg PO DAILY #30 tab.sr 12/16/14 25 mg (*)] Atorvastatin Calcium [Lipitor 40 40 mg PO DAILY 07/28/16 mg (*)] Gabapentin [Neurontin 300 MG (*)] 300 mg PO DAILY 07/28/16 Levothyroxine [Synthroid 75 mcg 75 mcg PO SUMOTUWETHFR@07/28/16 (*)] Metoprolol Succinate Xr [Toprol Xl 50 mg PO DAILY@07/28/16 50 mg (*)] Ranitidine HCl 150 mg PO DAILY PRN 07/28/16 oxyCODONE IR [Oxycodone Ir (*)] 5 mg PO Q4-6PRN PRN 07/28/16 Insulin Glargine [Lantus 100 14 units SC HS 08/27/16 UNITS/ML (*)] Insulin Lispro [humALOG LISPRO 100 6 - 9 unit SC TIDMEAL 08/27/16 units/ml (*)] Acetaminophen [Tylenol ES 500 mg 1,000 mg PO TID PRN 02/06/17 (*)] Amiodarone HCl [Pacerone (*)] 200 mg PO BID 02/06/17 Aspirin [Aspirin 81mg (*)] 81 mg PO DAILY #0 tab.chew 02/06/17 Furosemide [Lasix 40 MG (*)] 40 mg PO DAILY 02/06/17 Gabapentin [Neurontin 300 MG (*)] 600 mg PO HS 02/06/17 Insulin Lispro [humALOG LISPRO 100 0 unit SC TIDMEAL PRN 02/06/17 units/ml (*)] Spironolactone [Aldactone 25 MG 25 mg PO DAILY 02/06/17 (*)] Diazepam [Valium 2 MG (*)] 2 mg PO Q8 PRN #20 tab 07/26/17 oxyCODONE/APAP 5/325 [Percocet 1 - 2 tab PO Q4H PRN #20 tab 07/26/17 5/325 (*)] Medical Decision Making ED Course/Re-evaluation: 1330: Decision to call Dr. Shannon and/or his PA Farhad to discuss case and determine how to proceed No signs of neurovascular compromise/tenting of skin/compartment syndrome/ extremities and joints examined above and below area of concern and are neurovascularly intact. 1345: Spoke with Dr. Shiva WAGNER, Tyra Shen, who advised MRI results show L1- L2 and L2-L3 degenerative changes, with fracture at L5 of screw -stable with bone mineralization present. Recommended for patient to have lumbar ABRAHAM injections. Recommends Medrol Dosepak, muscle relaxers, pain control and follow up this week in the office. Does not recommend repeat imaging. 1350: Advised patient of findings and discussion with Neurosurgery. She now reports that she had lumbar ABRAHAM injections on Wednesday of last week. Patient's pain is now controlled. She is a diabetic and Medrol Dosepak is not a good pain control option for her. Patient has had Percocet and muscle relaxer in the past with good pain control. She is ambulatory with cane which is her baseline and wishes to be discharged home. I feel that this is a reasonable plan. Differential Diagnosis: Back pain including but not limited to muscular pain, herniated disc, spine fracture, intra-abdominal causes and urinary tract infection. Departure - Departure Disposition: Home, Routine, Self-Care Clinical Impression: Acute exacerbation of chronic low back pain, Lumbar degenerative disc disease Condition: Good Instructions: Low Back Strain (ED), Chronic Back Pain (ED) Referrals: Jill Shannon MD [Medical Doctor] - 1-2 days without fail Prescriptions: Diazepam [Valium 2 MG (*)] 2 mg PO Q8 PRN #20 tab PRN Reason: Spasms oxyCODONE/APAP 5/325 [Percocet 5/325 (*)] 1 - 2 tab PO Q4H PRN #20 tab PRN Reason: Pain, Severe
[2017-07-26 14:44] VITALS: BP 129/84; PULSE 50; RESP 16; TEMP 97.9; O2SAT 96
== END 2017-07-26 14:36 | disposition home or self-care (01) ==
LOC: EDUNIT#
DX: M51.36 Other intervertebral disc degeneration, lumbar region (principal); G89.29 Other chronic pain; E11.9 Type 2 diabetes mellitus without complications; I10 Essential (primary) hypertension; Z79.4 Long term (current) use of insulin; Z79.82 Long term (current) use of aspirin; Z79.84 Long term (current) use of oral hypoglycemic drugs; Z87.891 Personal history of nicotine dependence

== ENCOUNTER → 2017-09-01 | Outpatient (CLI) | payer OTHER | LOC: BHFA 13:00 | PROVIDERS: ATTEND Internal Medicine Cardiovascular Disease | DX: J45.909 Unspecified asthma, uncomplicated (principal); I48.91 Unspecified atrial fibrillation; Z79.899 Other long term (current) drug therapy | CPT/HCPCS: 94060; 94070; 94726; 94729; J7674 ==

== ENCOUNTER → 2017-10-25 | Outpatient (CLI) | payer OTHER | LOC: BMCIMAGING 14:22 | PROVIDERS: ATTEND Nurse Practitioner | DX: M47.26 Other spondylosis with radiculopathy, lumbar region (principal); Z98.1 Arthrodesis status ==

== ENCOUNTER → 2018-01-27 | Outpatient (CLI) | payer OTHER | LOC: FCPNEURO 20:00 | PROVIDERS: ATTEND Psychiatry & Neurology Sleep Medicine | DX: Z46.89 Encounter for fitting and adjustment of other specified devices (principal); G47.33 Obstructive sleep apnea (adult) (pediatric) ==

== ENCOUNTER → 2018-08-26 | Outpatient (CLI) | payer OTHER | LOC: BMCIMAGING 15:40 | PROVIDERS: ATTEND Internal Medicine Interventional Cardiology | DX: J40 Bronchitis, not specified as acute or chronic (principal); Z98.1 Arthrodesis status; M51.34 Other intervertebral disc degeneration, thoracic region ==

== ENCOUNTER 2018-10-25 16:38 | Inpatient (IN) | payer OTHER ==
--- NOTE | 2018-10-25 17:10 | EDPHY ---
H & P Time Seen by Provider: 10/25/18 17:08 HPI/ROS: Chief complaint. Fall, hip injury HPI. Patient is a 68-year-old female with left leg pain. She fell last night while cleaning a floor and slipped and her left leg when out sideways. She has pain to the medial left thigh. Hurts to walk. She has a hard time getting a physician on the toilet and wiping herself. She lives by herself. Seen earlier today at [facility] and had an x-ray of her hip which was apparently normal. He she was told to come to the emergency department if she cannot manage at home for admission and potential admission to [facility] facility. She denies hitting her head or losing consciousness. No neck pain, chest pain, shortness of breath, abdominal pain, back pain. Increased left thigh pain with range of motion and ambulation ROS 10 systems were reviewed and negative with the exception of the elements mentioned in the history of present illness Past Medical/Surgical History: Past medical history seen for lumbar fusion, cervical fusion, diabetes, hypertension, atrial fibrillation on Pradaxa, small-bowel obstruction, spinal stenosis, cholecystectomy, IBS, CVA Social History: Single, nonsmoker, no alcohol Smoking Status: Former smoker Physical Exam: General Appearance: Alert well-developed female moderate distress vital signs show initial heart rate 118 O2 saturation 91% on room air Eyes: Pupils equal and round no pallor or injection. ENT, Mouth: Mucous membranes are moist. Respiratory: There are no retractions, lungs are clear to auscultation. Cardiovascular: Regular rate and rhythm. Gastrointestinal: Abdomen is soft and nontender, no masses, bowel sounds normal. Neurological: Awake and alert, sensory and motor exams grossly normal. Skin: Warm and dry, no rashes. Musculoskeletal: Neck is supple nontender. Extremities patient has pain to the medial thigh. No significant deformity. No tenderness to the hip. No knee pain, hatfield, ankle pain. Psychiatric: Patient is oriented X 3, there is no agitation. Constitutional: Initial Vital Signs Temperature (C) 37 C 10/25/18 16:46 Heart Rate 118 H 10/25/18 16:46 Respiratory Rate 16 10/25/18 16:46 Blood Pressure 136/64 H 10/25/18 16:46 O2 Sat (%) 91 L 10/25/18 16:46 O2 Delivery Mode Nasal Cannula O2 (L/minute) 2 Allergies/Adverse Reactions: fructose Allergy (Severe, Verified 10/25/18 16:45) Home Medications: Medication Instructions Recorded Omeprazole [Prilosec 20 mg] 20 mg PO DAILY 08/17/14 Zolpidem Tartrate [Ambien 5MG (*)] 10 mg PO HS 08/17/14 Amitriptyline HCl [Elavil 10 mg 20 mg PO HS 12/15/14 (*)] Dabigatran Etexilate Mesyl 150 mg PO BID 12/15/14 [Pradaxa 150 MG (*)] Diltiazem Xr [Dilacor Xr 180 MG 180 mg PO HS 12/15/14 (RX)] Metformin HCl [Metformin 1000 mg] 1,000 mg PO BID 12/15/14 clonazePAM [Klonopin (*)] 0.5 mg PO DAILY PRN 12/15/14 Metoprolol Succinate Xr [Toprol Xl 25 mg PO DAILY #30 tab.sr 12/16/14 25 mg (*)] Atorvastatin Calcium [Lipitor 40 40 mg PO DAILY 07/28/16 mg (*)] Metoprolol Succinate Xr [Toprol Xl 50 mg PO DAILY@21 07/28/16 50 mg (*)] Ranitidine HCl 150 mg PO DAILY PRN 07/28/16 oxyCODONE IR [Oxycodone Ir (*)] 5 mg PO Q4-6PRN PRN 07/28/16 Insulin Glargine [Lantus 100 20 units SC HS 08/27/16 UNITS/ML] Amiodarone HCl [Pacerone (*)] 200 mg PO BID 02/06/17 Furosemide [Lasix 40 MG (*)] 40 mg PO DAILY 02/06/17 Spironolactone [Aldactone 25 MG 25 mg PO DAILY 02/06/17 (*)] Albuterol [Ventolin Hfa Inhaler] 1 - 2 puffs IH DAILY PRN 10/25/18 Ascorbic Acid [Vitamin C 250 mg 250 mg PO DAILY 10/25/18 (*)] Aspirin [Aspirin 81mg (*)] 81 mg PO HS 10/25/18 Cholecalciferol Vit D3 [Vitamin D3 1,000 units PO DAILY 10/25/18 (*)] Docusate Sodium [Stool Softener] 50 mg PO PRN PRN 10/25/18 Insulin Aspart [Novolog Flexpen] 16 - 20 unit SQ QID 10/25/18 Levothyroxine [Synthroid 50 mcg 50 mcg PO DAILY06 10/25/18 (*)] Medical Decision Making - Diagnostics EKG Interpretation: EKG interpreted by me shows atrial fibrillation. Normal axis. Mild interventricular conduction delay. No significant ST elevation or depression. Ventricular response is 115 Imaging Results: Imaging Impressions Chest X-Ray 10/25/18 17:27 Impression: Nothing acute identified. No evidence for fat embolism. 2. AP Pelvis, 17:57 History: Pain post fall last night Findings: Orthopedic fusion hardware is present in the low lumbar spine and appears intact. Amorphous calcification adjacent to the left greater trochanter may be related to calcific tendinitis. The pelvic ring is intact. The SI joints and pubic symphysis are normally aligned. No hip joint fracture is identified. Impression: Nothing acute identified. 3. Left Femur, 3 views History: Pain post fall last night Findings: Radiopaque density overlies the left buttock and may represent a recent injection site. No femoral fracture is identified. The knee joint is grossly normally aligned. Calcification adjacent to the medial femoral condyle may represent calcific tendinopathy. There is atherosclerotic vascular calcification behind the knee. Impression: No fracture or other posttraumatic abnormality identified. Femur X-Ray 10/25/18 17:28 Impression: Nothing acute identified. No evidence for fat embolism. 2. AP Pelvis, 17:57 History: Pain post fall last night Findings: Orthopedic fusion hardware is present in the low lumbar spine and appears intact. Amorphous calcification adjacent to the left greater trochanter may be related to calcific tendinitis. The pelvic ring is intact. The SI joints and pubic symphysis are normally aligned. No hip joint fracture is identified. Impression: Nothing acute identified. 3. Left Femur, 3 views History: Pain post fall last night Findings: Radiopaque density overlies the left buttock and may represent a recent injection site. No femoral fracture is identified. The knee joint is grossly normally aligned. Calcification adjacent to the medial femoral condyle may represent calcific tendinopathy. There is atherosclerotic vascular calcification behind the knee. Impression: No fracture or other posttraumatic abnormality identified. Pelvis X-Ray 10/25/18 17:28 Impression: Nothing acute identified. No evidence for fat embolism. 2. AP Pelvis, 17:57 History: Pain post fall last night Findings: Orthopedic fusion hardware is present in the low lumbar spine and appears intact. Amorphous calcification adjacent to the left greater trochanter may be related to calcific tendinitis. The pelvic ring is intact. The SI joints and pubic symphysis are normally aligned. No hip joint fracture is identified. Impression: Nothing acute identified. 3. Left Femur, 3 views History: Pain post fall last night Findings: Radiopaque density overlies the left buttock and may represent a recent injection site. No femoral fracture is identified. The knee joint is grossly normally aligned. Calcification adjacent to the medial femoral condyle may represent calcific tendinopathy. There is atherosclerotic vascular calcification behind the knee. Impression: No fracture or other posttraumatic abnormality identified. X-ray hip pelvis and chest reviewed by me. No fracture. Normal chest x-ray Procedures: IV normal saline. Morphine for pain. ED Course/Re-evaluation: On re-evaluation patient feels that she is unable to manage at home. She lives by herself. She requests admission and he realizes she may need to go to [facility] facility for rehab. I consulted and discussed the case with Dr. Kc, hospitalist, who agrees to the admission Differential Diagnosis: I considered fracture dislocation. This is likely hamstring muscle injury. However the patient is having difficulty managing at home and walking and caring for herself. Plan will be admission - Data Points Laboratory Results: Laboratory Results 10/25/18 17:34 10/25/18 17:34 10/25/1818 18 17:34 17:34 17:34 WBC 10.20 10^3/uL H 10^3/uL (3.80-9.50) RBC 4.39 10^6/uL 10^6/uL (4.18-5.33) Hgb 13.3 g/dL g/dL (12.6-16.3) Hct 39.6 % % (38.0-47.0) MCV 90.2 fL fL (81.5-99.8) MCH 30.3 pg pg (27.9-34.1) MCHC 33.6 g/dL g/dL (32.4-36.7) RDW 14.0 % % (11.5-15.2) Plt Count 324 10^3/uL 10^3/uL (150-400) MPV 10.6 fL fL (8.7-11.7) Neut % (Auto) 73.4 % % (39.3-74.2) Lymph % (Auto) 14.7 % L % (15.0-45.0) [place] % (Auto) 9.6 % % (4.5-13.0) Eos % (Auto) 1.3 % % (0.6-7.6) Baso % (Auto) 0.6 % % (0.3-1.7) Nucleat RBC Rel Count 0.0 % % (0.0-0.2) Absolute Neuts (auto) 7.49 10^3/uL H 10^3/uL (1.70-6.50) Absolute Lymphs (auto) 1.50 10^3/uL 10^3/uL (1.00-3.00) Absolute Monos (auto) 0.98 10^3/uL H 10^3/uL (0.30-0.80) Absolute Eos (auto) 0.13 10^3/uL 10^3/uL (0.03-0.40) Absolute Basos (auto) 0.06 10^3/uL 10^3/uL (0.02-0.10) Absolute Nucleated RBC 0.00 10^3/uL 10^3/uL (0-0.01) Immature Gran % 0.4 % % (0.0-1.1) Immature Gran # 0.04 10^3/uL 10^3/uL (0.00-0.10) PT 22.2 SEC H SEC (12.0-15.0) INR 1.94 H (0.83-1.16) APTT 65.3 SEC H SEC (23.0-38.0) Sodium 134 mEq/L L mEq/L (135-145) Potassium 5.0 mEq/L mEq/L (3.5-5.2) Chloride 101 mEq/L mEq/L (97-110) Carbon Dioxide 19 mEq/l L mEq/l (22-31) Anion Gap 14 mEq/L mEq/L (6-14) BUN 18 mg/dL mg/dL (7-23) Creatinine 0.8 mg/dL mg/dL (0.6-1.0) Estimated GFR > 60 Glucose 166 mg/dL H mg/dL (70-100) Calcium 9.5 mg/dL mg/dL (8.5-10.4) Medications Given: Discontinued Medications Morphine Sulfate (Morphine) 4 mg IVP EDNOW ONE Stop: 10/25/18 17:27 Last Admin: 10/25/18 17:47 Dose: 4 mg Departure - Departure Disposition: [facility] Inpatient Acute Clinical Impression: Leg injury Qualifiers: Encounter type: initial encounter Laterality: left Qualified Code(s): S89.92XA - Unspecified injury of left lower leg, initial encounter Condition: Fair
[2018-10-25 17:50] LABS: PLATELET COUNT 324 10^3/uL (150-400)
[2018-10-25 17:57] LABS: INR 1.94 (0.83-1.16)
[2018-10-25 18:20] LABS: PROTIME(PATIENT) 22.2 SEC (12.0-15.0)
[2018-10-25] MEDS ORDERED: ONDANSETRON DISINTEGRATING 4 MG TAB PO PRN (19:30)
[2018-10-25] MEDS ORDERED: ACETAMINOPHEN 325 MG TAB PO PRN (19:30)
[2018-10-25] MEDS ORDERED: ONDANSETRON 4 MG/2 ML VIAL IVP PRN (19:30)
[2018-10-25] MEDS ORDERED: HYDROmorphONE/DILAUDID 1 MG/ML INJ IVP PRN (19:30)
--- NOTE | 2018-10-25 19:39 | PDGENHP ---
<Shereen Engel - Last Filed: 10/25/18 20:19> History and Physical - Chief Complaint Left leg pain, weakness - History of Present Illness 68 y/o female presents after sustaining an injury last night. She reports slipping, causing her left leg to splay outward hitting her knee. She had difficulty getting back up. She has pain to the medial left thigh above the knee and it radiates posteriorly. She notices this pain with movement as well as when she is sitting on the toilet. She feels weak and does not feel safe ambulating, let alone ambulating by herself in her house which does have steps to enter into. She denies hitting her head or LOC. Denies SOB, chest pains, nausea, vomiting, fevers, chills. CXR: Nothing acute identified. Pelvis X-ray: Nothing acute identified. Left femur x-ray: no fracture or other posttraumatic abnormality identified Past Medical/Surgical History 1. Atrial fibrillation (on pradaxa) 2. Diastolic CHF 3. Diabetes II 4. HTN 5. 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 Hyperlipidemia Social 1. Denies tobacco or illicit drug use. Rarely drinks alcohol. 2. Lives in a ranch style house with steps to enter. Her son lives in [place]. Vital Signs 98/74 104 HR 16 Respirations 93% 2L NC 37.0c History Information - Allergies/Home Medication List Allergies/Adverse Reactions: fructose Allergy (Severe, Verified 10/25/18 16:45) Home Medications: Omeprazole [Prilosec 20 mg] 20 mg PO DAILY 08/17/14 [Last Taken 10/24/18] Zolpidem Tartrate [Ambien 5MG (*)] 10 mg PO HS 08/17/14 [Last Taken 10/24/18] Amitriptyline HCl [Elavil 10 mg (*)] 20 mg PO HS 12/15/14 [Last Taken 10/24/18] Dabigatran Etexilate Mesyl [Pradaxa 150 MG (*)] 150 mg PO BID 12/15/14 [Last Taken 10/25/18 08:00] Diltiazem Xr [Dilacor Xr 180 MG (RX)] 180 mg PO HS 12/15/14 [Last Taken 10/24/18 ] Metformin HCl [Metformin 1000 mg] 1,000 mg PO BID 12/15/14 [Last Taken 10/24/18] clonazePAM [Klonopin (*)] 0.5 mg PO DAILY PRN 12/15/14 [Last Taken 09/02/16 05: 00] Atorvastatin Calcium [Lipitor 40 mg (*)] 40 mg PO DAILY 07/28/16 [Last Taken 09/01] Metoprolol Succinate Xr [Toprol Xl 50 mg (*)] 50 mg PO DAILY@21 07/28/16 [Last Taken 10/24/18] Ranitidine HCl 150 mg PO DAILY PRN 07/28/16 [Last Taken 08/12/16] oxyCODONE IR [Oxycodone Ir (*)] 5 mg PO Q4-6PRN PRN 07/28/16 [Last Taken ] Insulin Glargine [Lantus 100 UNITS/ML] 20 units SC HS 08/27/16 [Last Taken 10/24] Amiodarone HCl [Pacerone (*)] 200 mg PO BID 02/06/17 [Last Taken 10/24/18] Furosemide [Lasix 40 MG (*)] 40 mg PO DAILY 02/06/17 [Last Taken 10/24/18] Spironolactone [Aldactone 25 MG (*)] 25 mg PO DAILY 02/06/17 [Last Taken ] Albuterol [Ventolin Hfa Inhaler] 1 - 2 puffs IH DAILY PRN 10/25/18 [Last Taken Unknown] Ascorbic Acid [Vitamin C 250 mg (*)] 250 mg PO DAILY 10/25/18 [Last Taken ] Aspirin [Aspirin 81mg (*)] 81 mg PO HS 10/25/18 [Last Taken 10/24/18] Cholecalciferol Vit D3 [Vitamin D3 (*)] 1,000 units PO DAILY 10/25/18 [Last Taken 10/24/18] Docusate Sodium [Stool Softener] 50 mg PO PRN PRN 10/25/18 [Last Taken Unknown] Insulin Aspart [Novolog Flexpen] 16 - 20 unit SQ QID 10/25/18 [Last Taken ] Levothyroxine [Synthroid 50 mcg (*)] 50 mcg PO DAILY06 10/25/18 [Last Taken 10/02] I have personally reviewed and updated: family history, medical history, social history, surgical history Past Medical History: See Hpi List - Past Medical History Additional medical history: atrial fibrillation on pradaxa. DM 2. diastolic CHF. hypertension. previous CVA with residual mild expressive aphasia. HLD - Surgical History Additional surgical history: Lumbar laminectomy. cervical kyphoplasty. small bowel surgery - Family History Positive for: non-pertinent - Social History Smoking Status: Former smoker Alcohol Use: Rarely Drug Use: None Additional social history: Patient lives alone, usually walks independently, exercises with PT regularly. Review of Systems Review of Systems: ROS: 10pt was reviewed & negative except for what was stated in HPI & below Constitutional: Reports: recent injury EENMT: Reports: no symptoms Cardiac: Reports: no symptoms Respiratory: Reports: no symptoms Gastrointestinal: Reports: no symptoms Genitourinary: Reports: no symptoms Muscolosketal: Reports: no symptoms Skin: Reports: no symptoms Neurological: Reports: depressed (Her son moved to [place]; she doesn't think she needs medications for it.) Hematologic/Lymphatic: Reports: no symptoms Immunologic/Allergy: Reports: other (See allergy list) Physical Exam Physical Exam: Lab data and imaging reviewed CXR, pelvis, and femur XR: see HPI list WBC: 10.20 INR: 1.94 Temp Pulse Resp BP Pulse Ox 37 C 104 H 16 98/74 L 93 10/25/18 16:46 10/25/18 18:53 10/25/18 18:53 10/25/18 18:53 10/25/18 18:53 Constitutional: no apparent distress, appears nourished, obese Eyes: PERRL, anicteric sclera, EOMI Ears, Nose, Mouth, Throat: moist mucous membranes, hearing normal, ears appear normal, no oral mucosal ulcers Cardiovascular: no murmur, rub, or gallop, irregularly irregular, tachycardia Peripheral Pulses: 2+: dorsalis-pedis (R) (Radial 2+), dorsalis-pedis (L) ( Radial 2+) Respiratory: reduced air movement (Diminished throughout lung becerra) Gastrointestinal: normoactive bowel sounds, soft, non-tender abdomen, no palpable masses Genitourinary: no bladder fullness, no bladder tenderness Skin: warm, normal color, no rashes or abrasions, no fluctuance, no induration, No mottled Musculoskeletal: pain with ROM, muscular tenderness (LLE; weak DF/PF), generalized weakness Neurologic: AAOx3, sensation intact bilaterally, CN II-XII Intact Psychiatric: interacting appropriately, not anxious, not encephalopathic, thought process linear Lymph, Heme, Immunologic: no cervical LAD, no supraclavicular LAD Lab Data & Imaging Review 10/25/18 17:34 10/25/18 17:34 WBC 10.20 10^3/uL (3.80-9.50) H 10/25/18 17:34 RBC 4.39 10^6/uL (4.18-5.33) 10/25/18 17:34 Hgb 13.3 g/dL (12.6-16.3) 10/25/18 17:34 Hct 39.6 % (38.0-47.0) 10/25/18 17:34 MCV 90.2 fL (81.5-99.8) 10/25/18 17:34 MCH 30.3 pg (27.9-34.1) 10/25/18 17:34 MCHC 33.6 g/dL (32.4-36.7) 10/25/18 17:34 RDW 14.0 % (11.5-15.2) 10/25/18 17:34 Plt Count 324 10^3/uL (150-400) 10/25/18 17:34 MPV 10.6 fL (8.7-11.7) 10/25/18 17:34 Neut % (Auto) 73.4 % (39.3-74.2) 10/25/18 17:34 Lymph % (Auto) 14.7 % (15.0-45.0) L 10/25/18 17:34 [place] % (Auto) 9.6 % (4.5-13.0) 10/25/18 17:34 Eos % (Auto) 1.3 % (0.6-7.6) 10/25/18 17:34 Baso % (Auto) 0.6 % (0.3-1.7) 10/25/18 17:34 Nucleat RBC Rel Count 0.0 % (0.0-0.2) 10/25/18 17:34 Absolute Neuts (auto) 7.49 10^3/uL (1.70-6.50) H 10/25/18 17:34 Absolute Lymphs (auto) 1.50 10^3/uL (1.00-3.00) 10/25/18 17:34 Absolute Monos (auto) 0.98 10^3/uL (0.30-0.80) H 10/25/18 17:34 Absolute Eos (auto) 0.13 10^3/uL (0.03-0.40) 10/25/18 17:34 Absolute Basos (auto) 0.06 10^3/uL (0.02-0.10) 10/25/18 17:34 Absolute Nucleated RBC 0.00 10^3/uL (0-0.01) 10/25/18 17:34 Immature Gran % 0.4 % (0.0-1.1) 10/25/18 17:34 Immature Gran # 0.04 10^3/uL (0.00-0.10) 10/25/18 17:34 PT 22.2 SEC (12.0-15.0) H 10/25/18 17:34 INR 1.94 (0.83-1.16) H 10/25/18 17:34 APTT 65.3 SEC (23.0-38.0) H 10/25/18 17:34 Sodium 134 mEq/L (135-145) L 10/25/18 17:34 Potassium 5.0 mEq/L (3.5-5.2) 10/25/18 17:34 Chloride 101 mEq/L (97-110) 10/25/18 17:34 Carbon Dioxide 19 mEq/l (22-31) L 10/25/18 17:34 Anion Gap 14 mEq/L (6-14) 10/25/18 17:34 BUN 18 mg/dL (7-23) 10/25/18 17:34 Creatinine 0.8 mg/dL (0.6-1.0) 10/25/18 17:34 Estimated GFR > 60 10/25/18 17:34 Glucose 166 mg/dL (70-100) H 10/25/18 17:34 Calcium 9.5 mg/dL (8.5-10.4) 10/25/18 17:34 Assessment & Plan Plan: 68 y/o female with mechanical fall yesterday, presenting with lower extremity weakness and pain - unable to safely ambulate independently. She will need to be inpatient for pain management and physical therapy. 1. Generalized weakness: she has been utilizing a walker for a number of years ago but has increasingly become weaker in ADLs and more recently, has experienced this acute injury. She is deconditioned. -PT/OT to work with pt 2. LLE pain -Pain PO/IVP PRN -Ice/hot packs PRN -Repositioning, elevation 3. Mildly Hypoxemic: Initially presented RA at 91%. 2L NC 93%. Incentive spirometry. Could be from pain and shallow breathing. Continue to monitor. 4. Leukocytosis: she is tachycardic as well. Afebrile. I suspect elevated WBC and tachy is indicative of an inflammatory process and not infectious. 5. Atrial fibrillation -Stable; no EKG changes from previous images -May continue her home medications including pradaxa 6. Diabetes -Per pt, her last A1c was ~7.4% -Lispro insulin sliding scales, plus Lantus 20 units HS Diet: ADA VTE ppx: Pradaxa, SCDs Code: DNR Dispo: Admit to inpatient <David Kc - Last Filed: 10/25/18 21:01> History and Physical - History of Present Illness Review of Systems Review of Systems: Physical Exam Physical Exam: Temp Pulse Resp BP Pulse Ox 36.7 C 96 18 103/65 97 10/25/18 20:02 10/25/18 20:02 10/25/18 20:02 10/25/18 20:02 10/25/18 20:02 Lab Data & Imaging Review 10/25/18 17:34 10/25/18 17:34 WBC 10.20 10^3/uL (3.80-9.50) H 10/25/18 17:34 RBC 4.39 10^6/uL (4.18-5.33) 10/25/18 17:34 Hgb 13.3 g/dL (12.6-16.3) 10/25/18 17:34 Hct 39.6 % (38.0-47.0) 10/25/18 17:34 MCV 90.2 fL (81.5-99.8) 10/25/18 17:34 MCH 30.3 pg (27.9-34.1) 10/25/18 17:34 MCHC 33.6 g/dL (32.4-36.7) 10/25/18 17:34 RDW 14.0 % (11.5-15.2) 10/25/18 17:34 Plt Count 324 10^3/uL (150-400) 10/25/18 17:34 MPV 10.6 fL (8.7-11.7) 10/25/18 17:34 Neut % (Auto) 73.4 % (39.3-74.2) 10/25/18 17:34 Lymph % (Auto) 14.7 % (15.0-45.0) L 10/25/18 17:34 [place]flower % (Auto) 9.6 % (4.5-13.0) 10/25/18 17:34 Eos % (Auto) 1.3 % (0.6-7.6) 10/25/18 17:34 Baso % (Auto) 0.6 % (0.3-1.7) 10/25/18 17:34 Nucleat RBC Rel Count 0.0 % (0.0-0.2) 10/25/18 17:34 Absolute Neuts (auto) 7.49 10^3/uL (1.70-6.50) H 10/25/18 17:34 Absolute Lymphs (auto) 1.50 10^3/uL (1.00-3.00) 10/25/18 17:34 Absolute Monos (auto) 0.98 10^3/uL (0.30-0.80) H 10/25/18 17:34 Absolute Eos (auto) 0.13 10^3/uL (0.03-0.40) 10/25/18 17:34 Absolute Basos (auto) 0.06 10^3/uL (0.02-0.10) 10/25/18 17:34 Absolute Nucleated RBC 0.00 10^3/uL (0-0.01) 10/25/18 17:34 Immature Gran % 0.4 % (0.0-1.1) 10/25/18 17:34 Immature Gran # 0.04 10^3/uL (0.00-0.10) 10/25/18 17:34 PT 22.2 SEC (12.0-15.0) H 10/25/18 17:34 INR 1.94 (0.83-1.16) H 10/25/18 17:34 APTT 65.3 SEC (23.0-38.0) H 10/25/18 17:34 Sodium 134 mEq/L (135-145) L 10/25/18 17:34 Potassium 5.0 mEq/L (3.5-5.2) 10/25/18 17:34 Chloride 101 mEq/L (97-110) 10/25/18 17:34 Carbon Dioxide 19 mEq/l (22-31) L 10/25/18 17:34 Anion Gap 14 mEq/L (6-14) 10/25/18 17:34 BUN 18 mg/dL (7-23) 10/25/18 17:34 Creatinine 0.8 mg/dL (0.6-1.0) 10/25/18 17:34 Estimated GFR > 60 10/25/18 17:34 Glucose 166 mg/dL (70-100) H 10/25/18 17:34 Calcium 9.5 mg/dL (8.5-10.4) 10/25/18 17:34 Assessment & Plan Assessment: Leg injury (Acute) Plan: Patient was seen and examined at bedside. I agree with the Assessment and Plan above.
[2018-10-25] MEDS ORDERED: clonazePAM 0.5 MG TAB PO PRN (20:07)
[2018-10-25] MEDS ORDERED: D50W 25 GM/50 ML SYR IVP PRN (20:18)
[2018-10-25] MEDS ORDERED: ALBUTEROL 60 PUFFS/8 GM MDI IH PRN (20:45)
[2018-10-25] MEDS: AMITRIPTYLINE HCL 10 MG TAB PO SCH (21:04)
[2018-10-25] MEDS: INSULIN GLARGINE 100 UNITS/ML UNIT SC SCH (21:04)
[2018-10-25] MEDS: METOPROLOL SUCCINATE XR 50 MG TAB PO SCH (21:05)
[2018-10-25] MEDS: DABIGATRAN ETEXILATE MESYL 150 MG CAP PO SCH (21:05)
[2018-10-25] MEDS: DILTIAZEM CD 180 MG CAP PO SCH (21:05)
[2018-10-25] MEDS: AMIODARONE HCL 200 MG TAB PO SCH (21:05)
[2018-10-25] MEDS: ZOLPIDEM TARTRATE 5 MG TAB PO SCH (21:06)
[2018-10-25] MEDS: ASPIRIN 81 MG CHEWABLE TAB PO SCH (21:06)
--- NOTE | 2018-10-25 21:11 | CPEKG ---
Test Reason : OPEN Blood Pressure : / mmHG Vent. Rate : 115 BPM Atrial Rate : 113 BPM P-R Int : 144 ms QRS Dur : 151 ms QT Int : 408 ms P-R-T Axes : 000 108 -38 degrees QTc Int : 565 ms Atrial fibrillation Nonspecific intraventricular conduction delay Confirmed by Timbo Taylor ([id number]) on 10/25/2018 9:10:35 PM Referred By: Confirmed By:Timbo Taylor
[2018-10-25] MEDS ORDERED: D50W 25 GM/50 ML VIAL IVP PRN (23:00)
[2018-10-25] MEDS: INSULIN LISPRO 100 UNIT/ML SC SCH (23:30)
[2018-10-26] MEDS: LEVOTHYROXINE 50 MCG TAB PO SCH (05:38)
[2018-10-26 06:11] LABS: PLATELET COUNT 284 10^3/uL (150-400)
[2018-10-26] MEDS: ATORVASTATIN CALCIUM 40 MG TAB PO SCH (08:45)
[2018-10-26] MEDS: metFORMIN HCL 500 MG TAB PO SCH ×2 (08:45→18:25)
[2018-10-26] MEDS: PANTOPRAZOLE SODIUM 40 MG TAB PO SCH (08:46)
[2018-10-26] MEDS: AMIODARONE HCL 200 MG TAB PO SCH ×2 (08:46→22:21)
[2018-10-26] MEDS: CHOLECALCIFEROL VIT D3 1,000 UNITS TAB PO SCH (08:46)
[2018-10-26] MEDS: ASCORBIC ACID 250 MG TAB PO SCH (08:46)
[2018-10-26] MEDS: DABIGATRAN ETEXILATE MESYL 150 MG CAP PO SCH ×2 (08:46→22:20)
[2018-10-26] MEDS: METOPROLOL SUCCINATE XR 25 MG TAB PO SCH (08:46)
[2018-10-26] MEDS: SPIRONOLACTONE 25 MG TAB PO SCH (08:46)
[2018-10-26] MEDS: FUROSEMIDE 40 MG TAB PO SCH (08:46)
[2018-10-26] MEDS: INSULIN LISPRO 100 UNIT/ML SC SCH ×4 (08:47→21:25)
[2018-10-26] MEDS ORDERED: FAMOTIDINE 20 MG TAB PO PRN (09:00)
[2018-10-26] MEDS: oxyCODONE IR 5 MG TAB PO PRN ×2 (10:20→22:20)
[2018-10-26] MEDS: LIDOCAINE 4%/MENTHOL 1% PATCH TD SCH (11:05)
--- NOTE | 2018-10-26 11:11 | PDMN ---
Medical Necessity Medical necessity: Pt meets IP criteria as of 10/25/2018 per MD and KAYA BENIOT ( musculoskeletal disease); est los > 2 mn for ongoing tx of LLE injury s/p mechanical fall causing severe pain and inability to safely ambulate as well as mild hypoxemia, tachycardia and leukocytosis indicative of an inflammatory process; requiring therapies, pain management, and serial labs; comorbid afib and diabetes.
--- NOTE | 2018-10-26 14:36 | ASMTCMCOM ---
CM Note CM Note Notes: CM spoke with pt. Provided education about SNF choices in area and gave [facility]. Pt requested referral to [facility]. CM completed referral for SNF. Pt reports she wants to return home and is eager to keep working towards her goals. CM to follow. Plan: [facility]. Date Signed: 10/26/2018 02:35 PM Electronically Signed By:ARGENIS Talbot
--- NOTE | 2018-10-26 15:24 | HOSPPROG ---
Hospitalist Progress Note Assessment/Plan: 68 y/o female with mechanical fall yesterday, presenting with lower extremity weakness and pain - unable to safely ambulate independently. She will need to be inpatient for pain management and physical therapy. First encounter, chart reviewed. 1. Generalized weakness: -she has been utilizing a walker for a number of years ago but has increasingly become weaker in ADLs and more recently, -has experienced this acute injury. -She is deconditioned. -PT/OT to work with pt 2. LLE pain -Pain PO/IVP PRN -Ice/hot packs PRN -Repositioning, elevation -xray negative -consider CT if not improving 3. Mildly Hypoxemic: -Initially presented RA at 91%. 2L NC 93%. -Incentive spirometry. -Could be from pain and shallow breathing. -Continue to monitor. 4. Leukocytosis: -she is tachycardic as well. -Afebrile. -I suspect elevated WBC and tachy is indicative of an inflammatory process and not infectious. 5. Atrial fibrillation -Stable; no EKG changes from previous images -May continue her home medications including pradaxa -monitor for possible complications 6. Diabetes -Per pt, her last A1c was ~7.4% -Lispro insulin sliding scales, plus Lantus 20 units HS Diet: ADA VTE ppx: Pradaxa, SCDs Code: DNR Dispo: Admit to inpatient Will likely need rehab monitor for potential complications while on pradaxa Subjective: Still very sore. Some pain with movement. Anxious about situation. Objective: Vital Signs Temp Pulse Resp BP Pulse Ox 36.6 C 82 16 109/78 92 10/26/18 12:07 10/26/18 12:07 10/26/18 12:07 10/26/18 12:07 10/26/18 12:07 Laboratory Results 10/26/18 04:33 10/26/18 04:33 10/25/18 10/26/18 10/27/18 05:59 05:59 05:59 Intake Total 240 Output Total 200 Balance -200 240 PT 22.2 SEC (12.0-15.0) H 10/25/18 17:34 INR 1.94 (0.83-1.16) H 10/25/18 17:34 - Physical Exam Constitutional: chronically ill appearing, obese, uncomfortable Eyes: PERRL, anicteric sclera, EOMI Ears, Nose, Mouth, Throat: moist mucous membranes, hearing normal, ears appear normal Cardiovascular: tachycardia, No JVD, No edema Respiratory: no respiratory distress, no rales or rhonchi, reduced air movement Gastrointestinal: normoactive bowel sounds, No tenderness, No ascites Skin: warm, normal color, No mottled Musculoskeletal: joint tenderness, pain with ROM, muscular tenderness, abnormal gait, generalized weakness Neurologic: AAOx3 Psychiatric: interacting appropriately, not anxious, not encephalopathic, thought process linear ICD10 Worksheet Patient Problems: Problems Problem Status Onset Abdominal pain Acute Atrial fibrillation with rapid ventricular response Acute Facial numbness Acute Inadvertent durotomy Acute Lumbar radiculitis Acute Lumbar stenosis Acute Arthrodesis status Acute Paresthesia Acute Leg injury Acute
[2018-10-26] MEDS: ESTROGENS,CONJUGATED 30 GM CRTUBE VG PRN ×2 (17:46→22:20)
[2018-10-26] MEDS ORDERED: INSULIN LISPRO 100 UNIT/ML SC SCH (21:00)
[2018-10-26] MEDS: ZOLPIDEM TARTRATE 5 MG TAB PO SCH (22:20)
[2018-10-26] MEDS: ASPIRIN 81 MG CHEWABLE TAB PO SCH (22:21)
[2018-10-26] MEDS: AMITRIPTYLINE HCL 10 MG TAB PO SCH (22:22)
[2018-10-26] MEDS: METOPROLOL SUCCINATE XR 50 MG TAB PO SCH (22:25)
[2018-10-26] MEDS: DILTIAZEM CD 180 MG CAP PO SCH (22:26)
[2018-10-26] MEDS: PATCH REMOVAL 1 EA PATCH TD SCH (22:27)
[2018-10-26] MEDS: INSULIN GLARGINE 100 UNITS/ML UNIT SC SCH (22:34)
[2018-10-27] MEDS: LEVOTHYROXINE 50 MCG TAB PO SCH (05:23)
[2018-10-27] MEDS: metFORMIN HCL 500 MG TAB PO SCH ×2 (08:22→18:15)
[2018-10-27] MEDS: PANTOPRAZOLE SODIUM 40 MG TAB PO SCH (08:22)
[2018-10-27] MEDS: DABIGATRAN ETEXILATE MESYL 150 MG CAP PO SCH ×2 (08:22→22:14)
[2018-10-27] MEDS: CHOLECALCIFEROL VIT D3 1,000 UNITS TAB PO SCH (08:22)
[2018-10-27] MEDS: ASCORBIC ACID 250 MG TAB PO SCH (08:22)
[2018-10-27] MEDS: SPIRONOLACTONE 25 MG TAB PO SCH (08:22)
[2018-10-27] MEDS: ATORVASTATIN CALCIUM 40 MG TAB PO SCH (08:22)
[2018-10-27] MEDS: FUROSEMIDE 40 MG TAB PO SCH (08:22)
[2018-10-27] MEDS: METOPROLOL SUCCINATE XR 25 MG TAB PO SCH (08:22)
[2018-10-27] MEDS: AMIODARONE HCL 200 MG TAB PO SCH ×2 (08:22→22:36)
[2018-10-27] MEDS: LIDOCAINE 4%/MENTHOL 1% PATCH TD SCH (08:23)
[2018-10-27] MEDS: INSULIN LISPRO 100 UNIT/ML SC SCH ×4 (08:24→22:16)
[2018-10-27] MEDS: ESTROGENS,CONJUGATED 30 GM CRTUBE VG PRN ×2 (10:05→22:07)
[2018-10-27] MEDS ORDERED: DOCUSATE SODIUM 50 MG PO PRN (12:44)
[2018-10-27] MEDS ORDERED: DOCUSATE SODIUM 100 MG CAP PO PRN (13:00)
--- NOTE | 2018-10-27 13:26 | HOSPPROG ---
Hospitalist Progress Note Assessment/Plan: 68 y/o female with mechanical fall yesterday, presenting with lower extremity weakness and pain - unable to safely ambulate independently. She will need to be inpatient for pain management and physical therapy. 1. Generalized weakness: -she has been utilizing a walker for a number of years - has increasingly become weaker in ADLs more recently, -has experienced this acute injury. -She is deconditioned. -PT/OT to work with pt 2. LLE pain -Pain PO/IVP PRN -Ice/hot packs PRN -Repositioning, elevation -xray negative -consider CT if not improving 3. Mildly Hypoxemic: -resolving -Initially presented RA at 91%. 2L NC 93%. -Incentive spirometry. -Could be from pain and shallow breathing. -Continue to monitor. 4. Leukocytosis: -resolved -Afebrile. -I suspect elevated WBC and tachy is indicative of an inflammatory process and not infectious. 5. Atrial fibrillation -Stable; no EKG changes from previous images -May continue her home medications including pradaxa -monitor for possible complications 6. Diabetes -Per pt, her last A1c was ~7.4% -Lispro insulin sliding scales, plus Lantus 20 units HS Diet: ADA VTE ppx: Pradaxa, SCDs Code: DNR Dispo: Admit to inpatient Will likely need rehab monitor for potential complications while on pradaxa possible DC in am to SNF if doing well Subjective: Up in the chair. Tired. Didn't sleep well. Pain getting better. Objective: Vital Signs Temp Pulse Resp BP Pulse Ox 36.4 C 88 16 97/63 L 90 L 10/27/18 11:35 10/27/18 11:35 10/27/18 07:46 10/27/18 11:35 10/27/18 11:35 Laboratory Results 10/27/18 04:26 10/26/18 04:33 10/26/18 10/27/18 10/28/18 05:59 05:59 05:59 Intake Total 240 Output Total 200 200 Balance -200 40 PT 22.2 SEC (12.0-15.0) H 10/25/18 17:34 INR 1.94 (0.83-1.16) H 10/25/18 17:34 - Physical Exam Constitutional: appears nourished, obese Eyes: PERRL, anicteric sclera Ears, Nose, Mouth, Throat: moist mucous membranes, hearing normal Cardiovascular: No JVD, No edema Respiratory: no respiratory distress, reduced air movement Gastrointestinal: No tenderness, No ascites Skin: warm, normal color Musculoskeletal: pain with ROM, muscular tenderness, abnormal gait, generalized weakness Neurologic: AAOx3 Psychiatric: interacting appropriately, not anxious, not encephalopathic ICD10 Worksheet Patient Problems: Problems Problem Status Onset Abdominal pain Acute Atrial fibrillation with rapid ventricular response Acute Facial numbness Acute Inadvertent durotomy Acute Lumbar radiculitis Acute Lumbar stenosis Acute Arthrodesis status Acute Paresthesia Acute Leg injury Acute
[2018-10-27] MEDS: AMITRIPTYLINE HCL 10 MG TAB PO SCH (22:14)
[2018-10-27] MEDS: ASPIRIN 81 MG CHEWABLE TAB PO SCH (22:14)
[2018-10-27] MEDS: ZOLPIDEM TARTRATE 5 MG TAB PO SCH (22:14)
[2018-10-27] MEDS: INSULIN GLARGINE 100 UNITS/ML UNIT SC SCH (22:16)
[2018-10-27] MEDS: METOPROLOL SUCCINATE XR 50 MG TAB PO SCH (22:19)
[2018-10-27] MEDS: PATCH REMOVAL 1 EA PATCH TD SCH (22:36)
[2018-10-27] MEDS: DILTIAZEM CD 180 MG CAP PO SCH (22:36)
[2018-10-28] MEDS: LEVOTHYROXINE 50 MCG TAB PO SCH (05:49)
[2018-10-28] MEDS: CHOLECALCIFEROL VIT D3 1,000 UNITS TAB PO SCH (09:28)
[2018-10-28] MEDS: PANTOPRAZOLE SODIUM 40 MG TAB PO SCH (09:28)
[2018-10-28] MEDS: ASCORBIC ACID 250 MG TAB PO SCH (09:28)
[2018-10-28] MEDS: LIDOCAINE 4%/MENTHOL 1% PATCH TD SCH (09:28)
[2018-10-28] MEDS: ATORVASTATIN CALCIUM 40 MG TAB PO SCH (09:28)
[2018-10-28] MEDS: DABIGATRAN ETEXILATE MESYL 150 MG CAP PO SCH (09:28)
[2018-10-28] MEDS: metFORMIN HCL 500 MG TAB PO SCH (09:28)
[2018-10-28] MEDS: INSULIN LISPRO 100 UNIT/ML SC SCH ×3 (09:29→12:16)
[2018-10-28] MEDS: FUROSEMIDE 40 MG TAB PO SCH (09:31)
[2018-10-28] MEDS: SPIRONOLACTONE 25 MG TAB PO SCH (09:31)
[2018-10-28] MEDS: AMIODARONE HCL 200 MG TAB PO SCH (09:31)
[2018-10-28] MEDS: METOPROLOL SUCCINATE XR 25 MG TAB PO SCH (09:31)
[2018-10-28 11:27] VITALS: BP 93/68
--- NOTE | 2018-10-28 12:48 | PDIAF ---
- Diagnosis Diagnosis: fall Code Status: Do Not Resuscitate - Medication Management Discharge Medications: electronically signed and located in the Home Medication List. PICC Care - Routine: N/A - Orders Services needed: Registered Nurse, Physical Therapy, Occupational Therapy Isolation Type: None Diet Recommendation: ADA 2000 consistent carb - Follow Up Care Current Providers and Referrals: Wendy Potts MD [Primary Care Provider] - As per Instructions Shiva Muniz MD [Medical Doctor] -
--- NOTE | 2018-10-28 13:20 | ASMTDCNOTE ---
Case Management Discharge Discharge Order Complete? Answers: Yes Patient to Obtain Answers: Other Notes: [facility] Transportation Arranged Answers: Other Notes: [facility] Transport will Pick (Date 10/28/2018 04:00 PM & Time) EMTALA Complete Answers: No Case Management Transport Answers: No Form Complete Faxed Final Orders Answers: Yes Agency/Facility Transfer Answers: Yes Report Printed & Faxed to Receiving Agency Family Notified Answers: Yes Discharge Comments Notes: Pts case discussed w/ Josephine Tinoco NP and SEBLE Hernandez. Pt is being d/c today to [facility]. DC orders sent. David will call to give report. CM notified pts son of the d/c. CM available for changes. Plan: [facility] Date Signed: 10/28/2018 01:20 PM Electronically Signed By:ARGENIS Falcon
--- NOTE | 2018-10-28 13:21 | ASMTLACE ---
LACE Length of stay for Answers: 3 days current admission Acuity / Level of Answers: Yes Care: Did the patient have an inpatient admission? Comorbidities - select Answers: Cerebrovascular disease all that apply (CVA, TIA, aneurysms, vasc ular dementia) Congestive heart failure Diabetes (uncontrolled or controlled) Opioid dependence / Chronic pain Other Notes: HTN; AFib; Spinal stenosis # of Emergency department Answers: 1-2 visits in the last 6 months Score: 16 Date Signed: 10/28/2018 01:20 PM Electronically Signed By:ARGENIS Falcon
[2018-10-28] MEDS: ESTROGENS,CONJUGATED 30 GM CRTUBE VG PRN (13:24)
--- NOTE | 2018-10-28 14:32 | GDS ---
DISCHARGE DIAGNOSES: 1. Mechanical fall. 2. Severe weakness. 3. Left leg pain. 4. Mild hypoxemia. 5. Leukocytosis. 6. History of atrial fibrillation. 7. Hypotension. 8. Diabetes. STUDIES AND PROCEDURES DONE: 1. Pelvic x-ray. 2. Femur x-ray. PHYSICAL EXAM: GENERAL: The patient is alert. VITAL SIGNS: Afebrile at 36.5. Pulse is 98, respir atory rate 16. Blood pressure is 93/68. She is saturating 93% on room air. I have seen and evaluat ed the patient on the day of discharge. HOSPITAL COURSE: The patient is a 68-year-old female who presented to the emergency room after suffe ring a mechanical fall. She was evaluated and diagnosed with: 1. Generalized weakness. The patient's weakness has progressively been increasing. She does use a walker at baseline. She has been evaluated by Physical Therapy and recommended to have discharge to longterm facility for further strengthening and conditioning. 2. Left lower extremity pain. This is in the setting of a mechanical fall. This appears to be stab le. She is responding well to pain management, and condition is improving. 3. Hypotension. During this hospitalization, the patient has had intermittent hypotension. I have reviewed the patient's cardiac medications with Cardiology. We have discontinued her Lopressor XR 25 mg at night in an attempt to avoid any further hypotensive episodes. She is generally asymptomatic with her hypotension. However, I wonder if this is exacerbating her weakness and causing significant problems. Her primary buildings and grounds superintendent is Dr. Shiva Muniz. She will follow with him in the outpati ent setting for further medication recommendations. 4. Mild hypoxemia. This has resolved, was in a setting of acute pain. She does not require any fur ther oxygen therapy. 5. Leukocytosis. Afebrile. This was suspected to be an acute reactive phase secondary to the nicolase nt's fall and injury. This is stable. 6. History of atrial fibrillation. This is stable, with no EKG changes noted. Her previously presc ribed home medications are continued. I have not adjusted her Cardizem or her amiodarone. She will continue on Pradaxa. She has no signs of bleeding or complication. 7. Diabetes, insulin has been continued. Hemoglobin A1c is 7.4. 8. Morbid obesity. I have discussed with the patient regarding lifestyle changes. She understands that this is important. DISPOSITION: The patient will be discharged to longterm with recommendations for rehabilitati on and strengthening. There are no pending studies. DISCHARGE MEDICATIONS: Please refer to EMR form. I have not adjusted the patient's previously presc ribed home medications, other than the exception of her discontinuation of her Toprol-XL 25 mg in the morning. Her blood pressure will continue to be monitored at the longterm facility. I have spent greater than 35 minutes in the care, coordination, and management of this patient's disp osition. /[id number]/MODL
== END 2018-10-28 15:54 | DRG 914 ==
LOC: F3E 20:15
PROVIDERS: ADMIT Family Medicine; ATTEND Family Medicine
DX: S89.91XA Unspecified injury of right lower leg, initial encounter (principal); R53.1 Weakness; W19.XXXA Unspecified fall, initial encounter; Y92.019 Unspecified place in single-family (private) house as the place of occurrence of the external cause; Y93.E5 Activity, floor mopping and cleaning; I48.91 Unspecified atrial fibrillation; R09.02 Hypoxemia; D72.829 Elevated white blood cell count, unspecified; E11.9 Type 2 diabetes mellitus without complications; I69.920 Aphasia following unspecified cerebrovascular disease; I10 Essential (primary) hypertension; E78.5 Hyperlipidemia, unspecified; Z79.4 Long term (current) use of insulin; Z79.01 Long term (current) use of anticoagulants; Z98.1 Arthrodesis status; Z66 Do not resuscitate; Z87.891 Personal history of nicotine dependence
CPT/HCPCS: 96374; 97116-GP; 97161-GP; 97166-GO; 97530-GP; 97535-GO; G8978-GP-CJ; G8979-GP-CI; G8987-GO-CK; G8988-GO-CI; J1815; J2270

== ENCOUNTER → 2018-10-25 | Outpatient (CLI) | payer OTHER | LOC: BMCIMAGING 13:24 | PROVIDERS: ATTEND Emergency Medicine | DX: M25.552 Pain in left hip (principal) ==

== ENCOUNTER → 2018-11-04 | Outpatient (CLI) | payer OTHER | LOC: BHFA 10:00 | PROVIDERS: ATTEND Internal Medicine Cardiovascular Disease | DX: I48.91 Unspecified atrial fibrillation (principal) ==

== ENCOUNTER 2019-04-19 11:10 | Observation (INO) | payer OTHER | END 2019-04-20 15:40 | disposition home or self-care (01) | LOC: F3E 16:58 ==